=== PATIENT | male | born 1970 | race Caucasian/White ===

== ENCOUNTER 2018-01-10 08:11 | Inpatient (IN) | payer OTHER ==
[2018-01-10 08:44] VITALS: BMI 25.2
--- NOTE | 2018-01-10 09:33 | HP ---
CIWA Score - CIWA Score Nausea/Vomitin-Mild Nausea/No Vomiting Muscle Tremors: 4-Moderate,w/Arms Extend Anxiety: 4-Mod. Anxious/Guarded Agitation: 1-Slight > Activity Paroxysmal Sweats: 1-Minimal Palms Moist Orientation: 1-Uncertain about Date Tacttile Disturbances: 1-Very Mild Itch/Numbness Auditory Disturbances: 1-Very Mild Visual Disturbances: 1-Very Mild Sensitivity Headache: 1-Very Mild CIWA-Ar Total Score: 16 Admission ROS BHS - HPI Chief Complaint: I want to stop drinking, I need help, I get too shaky I can't stop on my own Allergies/Adverse Reactions: Allergies Allergy/AdvReac Type Severity Reaction Status Date / Time No Known Drug Allergies Allergy Verified 01/10/18 08:57 lactose [Lactose] AdvReac Unknown LACTOSE Verified 01/10/18 08:59 INTOLERANCE History of Present Illness: 47 yo gentleman here for detox from alcohol - also using marijuana, denies street methadone but noted urine tox+ methadone - also denies cocaine use despite urinte tox + cocaine. No seizures, does have black outs. Last time in detox was here in 2014. States longest time sober was about a year. Exam Limitations: Clinical Condition - Ebola screening Have you traveled outside of the country in the last 21 days: No (N) Have you had contact with anyone from an Ebola affected area: No Have you been sick,other than usual withdrawal symptoms: No Do you have a fever: No - Review of Systems Constitutional: Loss of Appetite, Malaise, Changes in sleep, Weakness EENT: reports: No Symptoms Reported Respiratory: reports: No Symptoms reported Cardiac: reports: No Symptoms Reported GI: reports: Nausea, Poor Appetite : reports: Frequency Musculoskeletal: reports: No Symptoms Reported Integumentary: reports: Dryness Neuro: reports: Headache, Tremors, Weakness Endocrine: reports: No Symptoms Reported Hematology: reports: No Symptoms Reported Psychiatric: reports: Judgement Intact, Mood/Affect Appropiate, Anxious Other Systems: Reviewed and Negative Patient History - Patient Medical History Hx Anemia: No Hx Asthma: No Hx Chronic Obstructive Pulmonary Disease (COPD): No Hx Cancer: No Hx Cardiac Disorders: No Hx Congestive Heart Failure: No Hx Hypertension: Yes (states high only when drinking - no meds) Hx Hypercholesterolemia: No Hx Pacemaker: No HX Cerebrovascular Accident: No Hx Seizures: No Hx Dementia: No Hx Diabetes: No Hx Gastrointestinal Disorders: Yes (acid reflux) Hx Liver Disease: No Hx Genitourinary Disorders: No Hx Sexually Transmitted Disorders: No Hx Renal Disease (ESRD): No Hx Thyroid Disease: No Hx Human Immunodeficiency Virus (HIV): No (negative) Hx Hepatitis C: No Hx Depression: Yes Hx Suicide Attempt: Yes (CURRENTLY DENIES SI/HI) Hx Bipolar Disorder: No Hx Schizophrenia: No - Patient Surgical History Past Surgical History: Yes Hx Neurologic Surgery: No Hx Cataract Extraction: No Hx Cardiac Surgery: No Hx Lung Surgery: No Hx Breast Surgery: No Hx Breast Biopsy: No Hx Abdominal Surgery: No Hx Appendectomy: No Hx Cholecystectomy: No Hx Genitourinary Surgery: No Hx Section: No Hx Orthopedic Surgery: No Other Surgical History: fracture floor of orbit right [facility] , numbness of right infr Anesthesia Reaction: No - PPD History Previous Implant?: Yes Documented Results: Negative w/proof Implanted On Prior [facility] Admission?: Yes Date: 11/16/14 Results: NEGATIVE PPD to be Administered?: Yes - Reproductive History Patient is a Female of Child Bearing Age (11 -55 yrs old): No (male) - Smoking Cessation Smoking history: Current every day smoker Have you smoked in the past 12 months: Yes Aproximately how many cigarettes per day: 20 Cigars Per Day: 0 Hx Chewing Tobacco Use: No Initiated information on smoking cessation: Yes 'Breaking Loose' booklet given: 01/10/18 (give on floor) - Substance & Tx. History Hx Alcohol Use: Yes Hx Substance Use: Yes Substance Use Type: Alcohol, Cocaine, Heroin, Marijuana Hx Substance Use Treatment: Yes (detox, rehab) - Substances Abused Alcohol Route: Oral Frequency: Daily Amount used: 2 LITERS OF VODKA AND 3-4 (SIX PACKS) OF BEER DAILY Age of first use: 12 Date of Last Use: 01/09/18 Marijuana/Hashish Route: Smoking Frequency: Daily Amount used: $30 Age of first use: 8 Date of Last Use: 01/09/18 cocaine Route: Inhalation Frequency: 1-3 times last 30 days Amount used: $50 Age of first use: 16 Date of Last Use: 01/07/18 heroin Route: Inhalation Frequency: 1-3 times last 30 days Amount used: 4 bags Age of first use: 24 Date of Last Use: 01/08/18 Family Disease History - Family Disease History Family Disease History: Other: Father (alcoholic , cirrhosis), Mother ( alcoholic ), Brother (living,healthy), Sister (living, healthy), Son ( two - living - healthy) Admission Physical Exam [facility] - Vital Signs Vital Signs: Vital Signs - 24 hr 01/10/18 08:41 Temperature 96.8 F L Pulse Rate 78 Respiratory 17 Rate Blood Pressure 159/102 - Physical General Appearance: Yes: Nourished, Appropriately Dressed, Moderate Distress, Tremorous HEENTM: Yes: EOMI, Hearing grossly Normal, Normocephalic, Normal Voice, Other ( left eye wanders outward; tongue coated) Respiratory: Yes: Normal Breath Sounds, No Respiratory Distress Neck: Yes: Supple, Trachea in good position Breast: Yes: Breast Exam Deferred Cardiology: Yes: Regular Rhythm, Regular Rate Abdominal: Yes: Soft Genitourinary: Yes: Frequency Back: Yes: Normal Inspection Musculoskeletal: Yes: full range of Motion, Gait Steady Extremities: Yes: Normal Inspection, Non-Tender Neurological: Yes: Alert, Normal Mood/Affect, Normal Response Integumentary: Yes: Normal Color, Warm Lymphatic: Yes: Within Normal Limits - Diagnostic (1) Alcohol dependence with uncomplicated withdrawal Current Visit: Yes Status: Acute (2) Cannabis dependence Current Visit: Yes Status: Chronic (3) Gastroesophageal reflux disease Current Visit: Yes Status: Chronic Qualifiers: Esophagitis presence: without esophagitis Qualified Code(s): K21.9 - Gastro -esophageal reflux disease without esophagitis (4) Nicotine dependence Current Visit: Yes Status: Chronic Qualifiers: Nicotine product type: cigarettes Substance use status: uncomplicated Qualified Code(s): F17.210 - Nicotine dependence, cigarettes, uncomplicated Cleared for Admission [facility] - Detox or Rehab [facility] Level of Care: Medically Managed Detox Regimen/Protocol: Librium [facility] Breath Alcohol Content Breath Alcohol Content: 0.060 Urine Drug Screen - Results Drug Screen Negative: No Urine Drug Screen Results: THC-Marijuana, LINDSEY-Cocaine, MTD-Methadone
[2018-01-10] MEDS ORDERED: MENTHOL/PHENOL 1 EACH UD MM PRN (09:50)
[2018-01-10] MEDS ORDERED: chlordiazePOXIDE HCL 25 MG CAPSULE PO PRN (09:50)
[2018-01-10] MEDS ORDERED: IBUPROFEN 400 MG TABLET (FP) PO PRN (09:50)
[2018-01-10] MEDS ORDERED: LOPERAMIDE HCL 2 MG CAPSULE PO PRN (09:50)
[2018-01-10] MEDS ORDERED: P-EPHED 60MG/TRIPROLIDI 2.5MG TABLET PO PRN (09:50)
[2018-01-10] MEDS ORDERED: MAGNESIUM CITRATE 300 ML BOTTLE PO PRN (09:50)
[2018-01-10] MEDS ORDERED: MAG HYDROX/AL HYDROX/SIMETH 30 ML UNIT-DOSE CUP PO PRN (09:50)
[2018-01-10] MEDS ORDERED: hydrOXYzine PAMOATE 50 MG CAPSULE (FP) PO PRN (09:50)
[2018-01-10] MEDS ORDERED: ACETAMINOPHEN 325 MG TABLET (FP) PO PRN (09:50)
[2018-01-10] MEDS ORDERED: MAGNESIUM HYDROX 2400MG/30ML ORAL SUSPENSION 30 ML CUP PO PRN (09:50)
[2018-01-10] MEDS ORDERED: guaiFENesin/D-METHORPHAN HB 10 ML UNIT-DOSE CUPS PO PRN (09:50)
[2018-01-10] MEDS ORDERED: chlordiazePOXIDE HCL 25 MG CAPSULE PO ONE (10:45)
[2018-01-10] MEDS: NICOTINE 21 MG/24 HOURS TOPICAL PATCH TD SCH (10:48)
[2018-01-10] MEDS: PRENATAL VITAMINS W/ FOLIC ACID TABLET (FP) PO SCH (10:49)
--- NOTE | 2018-01-10 14:47 | EKG ---
Test Reason : Blood Pressure : / mmHG Vent. Rate : 076 BPM Atrial Rate : 076 BPM P-R Int : 152 ms QRS Dur : 088 ms QT Int : 382 ms P-R-T Axes : 053 024 037 degrees QTc Int : 429 ms NORMAL SINUS RHYTHM NORMAL ECG NO PREVIOUS ECGS AVAILABLE Confirmed by MD Keith, Billy ([id number]) on 01/10/2018 2:47:26 PM Referred By: Confirmed By:Billy Parker MD
[2018-01-10] MEDS: chlordiazePOXIDE HCL 25 MG CAPSULE PO SCH ×2 (17:33→23:00)
[2018-01-10 17:39] LABS: URINE APPEARANCE CLEAR; URINE BILIRUBIN NEGATIVE (<2.0 mg/dL); URINE BLOOD NEGATIVE (NEGATIVE); URINE COLOR STRAW; URINE GLUCOSE (UA) NEGATIVE (NEGATIVE); URINE KETONE NEGATIVE (NEGATIVE); URINE LEUK ESTERASE NEGATIVE (NEGATIVE); URINE NITRITE NEGATIVE (NEGATIVE); URINE PROTEIN NEGATIVE (NEGATIVE); URINE UROBILINOGEN NEGATIVE mg/dL (0.2-1.0)
[2018-01-10] MEDS: THIAMINE HCL 100 MG TABLET (FP) PO SCH (23:01)
[2018-01-10] MEDS: MELATONIN 5 MG TABLETS PO PRN (23:01)
[2018-01-11] MEDS: chlordiazePOXIDE HCL 25 MG CAPSULE PO SCH ×4 (05:10→22:18)
[2018-01-11 10:08] LABS: HEMATOCRIT 38.9 % (35.4-49); HEMOGLOBIN 13.3 GM/dL (11.7-16.9); MCH 32.4 pg (25.7-33.7); MCHC 34.2 g/dl (32.0-35.9); MEAN CELL VOLUME 94.7 fl (80-96); MEAN PLT VOLUME 6.2 fl (7.5-11.1); PLATELET COUNT 313 K/MM3 (134-434); RDW 14.1 % (11.9-15.9)
[2018-01-11 10:22] LABS: ALBUMIN 3.8 g/dl (3.4-5.0); ANION GAP 9 (8-16); BLOOD UREA NITROGEN 13 mg/dL (7-18); CALCIUM 8.6 mg/dL (8.5-10.1); CHLORIDE 103 mmol/L (98-107); CO2 29 mmol/L (21-32); CREATININE 0.9 mg/dL (0.7-1.3); GLUCOSE,RANDOM 92 mg/dL (74-106); SGOT/AST 35 U/L (15-37); SGPT/ALT 39 U/L (12-78); SODIUM 141 mmol/L (136-145)
[2018-01-11 10:24] LABS: ALK PHOS 101 U/L (45-117); BILIRUBIN,TOTAL 0.5 mg/dL (0.2-1.0); TOT PROT 7.7 g/dl (6.4-8.2)
[2018-01-11] MEDS: NICOTINE 21 MG/24 HOURS TOPICAL PATCH TD SCH (10:42)
[2018-01-11] MEDS: PRENATAL VITAMINS W/ FOLIC ACID TABLET (FP) PO SCH (10:42)
--- NOTE | 2018-01-11 12:42 | PN ---
S CIWA - CIWA Score Nausea/Vomitin-Mild Nausea/No Vomiting Muscle Tremors: 4-Moderate,w/Arms Extend Anxiety: 3 Agitation: 3 Paroxysmal Sweats: 1-Minimal Palms Moist Orientation: 0-Oriented Tacttile Disturbances: 1-Very Mild Itch/Numbness Auditory Disturbances: 0-None Visual Disturbances: 0-None Headache: 0-None Present CIWA-Ar Total Score: 13 BHS Progress Note (SOAP) Subjective: sweat tremor restlessness trouble sleep at night Objective: 01/11/18 12:41 Vital Signs Temperature 97.5 F L 01/11/18 10:00 Pulse Rate 71 01/11/18 10:00 Respiratory Rate 18 01/11/18 10:00 Blood Pressure 123/73 01/11/18 10:00 O2 Sat by Pulse Oximetry (%) Laboratory Last Values WBC 8.0 K/mm3 (4.0-10.0) 01/11/18 05:55 RBC 4.10 M/mm3 (4.00-5.60) 01/11/18 05:55 Hgb 13.3 GM/dL (11.7-16.9) 01/11/18 05:55 Hct 38.9 % (35.4-49) 01/11/18 05:55 MCV 94.7 fl (80-96) 01/11/18 05:55 MCH 32.4 pg (25.7-33.7) 01/11/18 05:55 MCHC 34.2 g/dl (32.0-35.9) 01/11/18 05:55 RDW 14.1 % (11.9-15.9) 01/11/18 05:55 Plt Count 313 K/MM3 (134-434) D 01/11/18 05:55 MPV 6.2 fl (7.5-11.1) L D 01/11/18 05:55 Sodium 141 mmol/L (136-145) 01/11/18 05:55 Potassium 4.0 mmol/L (3.5-5.1) 01/11/18 05:55 Chloride 103 mmol/L (98-107) 01/11/18 05:55 Carbon Dioxide 29 mmol/L (21-32) 01/11/18 05:55 Anion Gap 9 (8-16) 01/11/18 05:55 BUN 13 mg/dL (7-18) D 01/11/18 05:55 Creatinine 0.9 mg/dL (0.7-1.3) 01/11/18 05:55 Creat Clearance w eGFR > 60 (>60) 01/11/18 05:55 Random Glucose 92 mg/dL (74-106) 01/11/18 05:55 Calcium 8.6 mg/dL (8.5-10.1) 01/11/18 05:55 Total Bilirubin 0.5 mg/dL (0.2-1.0) 01/11/18 05:55 AST 35 U/L (15-37) D 01/11/18 05:55 ALT 39 U/L (12-78) D 01/11/18 05:55 Alkaline Phosphatase 101 U/L (45-117) D 01/11/18 05:55 Total Protein 7.7 g/dl (6.4-8.2) 01/11/18 05:55 Albumin 3.8 g/dl (3.4-5.0) 01/11/18 05:55 Urine Color Straw 01/10/18 Unknown Urine Appearance Clear 01/10/18 Unknown Urine pH 8.0 (5.0-8.0) D 01/10/18 Unknown Ur Specific [place] 1.013 (1.001-1.035) 01/10/18 Unknown Urine Protein Negative (NEGATIVE) 01/10/18 Unknown Urine Glucose (UA) Negative (NEGATIVE) 01/10/18 Unknown Urine Ketones Negative (NEGATIVE) 01/10/18 Unknown Urine Blood Negative (NEGATIVE) 01/10/18 Unknown Urine Nitrite Negative (NEGATIVE) 01/10/18 Unknown Urine Bilirubin Negative (<2.0 mg/dL) 01/10/18 Unknown Urine Urobilinogen Negative mg/dL (0.2-1.0) 01/10/18 Unknown Ur Leukocyte Esterase Negative (NEGATIVE) 01/10/18 Unknown RPR Titer Nonreactive (NONREACTIVE) 01/11/18 05:55 HIV 1&2 Antibody Screen Negative 01/11/18 05:55 HIV P24 Antigen Negative 01/11/18 05:55 lab noted Assessment: 01/11/18 12:42 withdrawal sx Plan: continue detox
[2018-01-11] MEDS: THIAMINE HCL 100 MG TABLET (FP) PO SCH (22:17)
[2018-01-11] MEDS: MELATONIN 5 MG TABLETS PO PRN (22:18)
[2018-01-12] MEDS: chlordiazePOXIDE HCL 25 MG CAPSULE PO SCH ×2 (05:55→10:15)
[2018-01-12] MEDS: PRENATAL VITAMINS W/ FOLIC ACID TABLET (FP) PO SCH (10:15)
[2018-01-12] MEDS: NICOTINE 21 MG/24 HOURS TOPICAL PATCH TD SCH (10:16)
--- NOTE | 2018-01-12 10:18 | PN ---
S CIWA - CIWA Score Nausea/Vomitin-Mild Nausea/No Vomiting Muscle Tremors: 4-Moderate,w/Arms Extend Anxiety: 2 Agitation: 3 Paroxysmal Sweats: 1-Minimal Palms Moist Orientation: 0-Oriented Tacttile Disturbances: 1-Very Mild Itch/Numbness Auditory Disturbances: 0-None Visual Disturbances: 0-None Headache: 0-None Present CIWA-Ar Total Score: 12 BHS Progress Note (SOAP) Subjective: sweat tremor anxiety restlessness trouble sleep at night Objective: 01/12/18 10:17 Vital Signs Temperature 97.5 F L 01/12/18 07:43 Pulse Rate 64 01/12/18 07:43 Respiratory Rate 18 01/12/18 07:43 Blood Pressure 126/78 01/12/18 07:43 O2 Sat by Pulse Oximetry (%) Laboratory Last Values WBC 8.0 K/mm3 (4.0-10.0) 01/11/18 05:55 RBC 4.10 M/mm3 (4.00-5.60) 01/11/18 05:55 Hgb 13.3 GM/dL (11.7-16.9) 01/11/18 05:55 Hct 38.9 % (35.4-49) 01/11/18 05:55 MCV 94.7 fl (80-96) 01/11/18 05:55 MCH 32.4 pg (25.7-33.7) 01/11/18 05:55 MCHC 34.2 g/dl (32.0-35.9) 01/11/18 05:55 RDW 14.1 % (11.9-15.9) 01/11/18 05:55 Plt Count 313 K/MM3 (134-434) D 01/11/18 05:55 MPV 6.2 fl (7.5-11.1) L D 01/11/18 05:55 Sodium 141 mmol/L (136-145) 01/11/18 05:55 Potassium 4.0 mmol/L (3.5-5.1) 01/11/18 05:55 Chloride 103 mmol/L (98-107) 01/11/18 05:55 Carbon Dioxide 29 mmol/L (21-32) 01/11/18 05:55 Anion Gap 9 (8-16) 01/11/18 05:55 BUN 13 mg/dL (7-18) D 01/11/18 05:55 Creatinine 0.9 mg/dL (0.7-1.3) 01/11/18 05:55 Creat Clearance w eGFR > 60 (>60) 01/11/18 05:55 Random Glucose 92 mg/dL (74-106) 01/11/18 05:55 Calcium 8.6 mg/dL (8.5-10.1) 01/11/18 05:55 Total Bilirubin 0.5 mg/dL (0.2-1.0) 01/11/18 05:55 AST 35 U/L (15-37) D 01/11/18 05:55 ALT 39 U/L (12-78) D 01/11/18 05:55 Alkaline Phosphatase 101 U/L (45-117) D 01/11/18 05:55 Total Protein 7.7 g/dl (6.4-8.2) 01/11/18 05:55 Albumin 3.8 g/dl (3.4-5.0) 01/11/18 05:55 Urine Color Straw 01/10/18 Unknown Urine Appearance Clear 01/10/18 Unknown Urine pH 8.0 (5.0-8.0) D 01/10/18 Unknown Ur Specific [place] 1.013 (1.001-1.035) 01/10/18 Unknown Urine Protein Negative (NEGATIVE) 01/10/18 Unknown Urine Glucose (UA) Negative (NEGATIVE) 01/10/18 Unknown Urine Ketones Negative (NEGATIVE) 01/10/18 Unknown Urine Blood Negative (NEGATIVE) 01/10/18 Unknown Urine Nitrite Negative (NEGATIVE) 01/10/18 Unknown Urine Bilirubin Negative (<2.0 mg/dL) 01/10/18 Unknown Urine Urobilinogen Negative mg/dL (0.2-1.0) 01/10/18 Unknown Ur Leukocyte Esterase Negative (NEGATIVE) 01/10/18 Unknown RPR Titer Nonreactive (NONREACTIVE) 01/11/18 05:55 HIV 1&2 Antibody Screen Negative 01/11/18 05:55 HIV P24 Antigen Negative 01/11/18 05:55 lab noted Assessment: 01/12/18 10:18 withdrawal sx Plan: continue detox
--- NOTE | 2018-01-12 11:22 | CONSULT ---
[facility] Psychiatric Consult - Data Date of interview: 01/12/18 Admission source: [facility] Identifying data: This is 47 years old male, single father of two, unemployed, with no psychiatric hospitalization history, gentleman here for detox from alcohol - also marijuana, Heroin a s well, Cocaine, seeking for detox, reports withdrawal symptoms Substance Abuse History: - Smoking Cessation. Smoking history: Current every day smoker. Have you smoked in the past 12 months: Yes. Aproximately how many cigarettes per day: 20. Cigars Per Day: 0. Hx Chewing Tobacco Use: No. Initiated information on smoking cessation: Yes. 'Breaking Loose' booklet given : 01/10/18 (give on floor). - Substance & Tx. History. Hx Alcohol Use: Yes. Hx Substance Use: Yes. Substance Use Type: Alcohol, Cocaine, Heroin, Marijuana. Hx Substance Use Treatment: Yes (detox, rehab). - Substances Abused. Alcohol. Route: Oral. Frequency: Daily. Amount used: 2 LITERS OF VODKA AND 3-4 (SIX PACKS) OF BEER DAILY. Age of first use: 12. Date of Last Use: 01/09/18. Marijuana/Hashish. Route: Smoking. Frequency: Daily. Amount used: $30. Age of first use: 8. Date of Last Use: 01/09/18. cocaine. Route: Inhalation. Frequency: 1-3 times last 30 days. Amount used: $ 50. Age of first use: 16. Date of Last Use: 01/07/18. heroin. Route: Inhalation. Frequency: 1-3 times last 30 days. Amount used: 4 bags. Age of first use: 24. Date of Last Use: 01/08/18 Medical History: GERD Psychiatric History: DENIES PAST PSYCHIATRIC HISTORY Physical/Sexual Abuse/Trauma History: Denies Additional Comment: Observation. Detox Unit Care Protocol Mental Status Exam - Mental Status Exam Alert and Oriented to: Person Cognitive Function: Fair Patient Appearance: Unkempt Mood: Anxious Affect: Normal Range Patient Behavior: Cooperative Speech Pattern: Delayed Voice Loudness: Mildly Soft/Quiet Thought Process: Circumstantial Thought Disorder: Being Controlled Hallucinations: Denies Suicidal Ideation: Denies Insight/Judgement: Fair Sleep: Difficulty falling asleep Appetite: Weight loss Muscle strength/Tone: Mild Hypotonicity Gait/Station: Shuffling Additional Comments: Observation. Detox Unit Care Protocol Psychiatric Findings - Problem List ([place] 1, 2,3) (1) Alcohol dependence with uncomplicated withdrawal Current Visit: Yes Status: Acute (2) Cannabis dependence Current Visit: Yes Status: Chronic (3) Nicotine dependence Current Visit: Yes Status: Chronic Qualifiers: Nicotine product type: cigarettes Substance use status: uncomplicated Qualified Code(s): F17.210 - Nicotine dependence, cigarettes, uncomplicated (4) Cannabis dependence, uncomplicated Current Visit: No Status: Acute (5) Uncomplicated sedative, hypnotic or anxiolytic withdrawal Current Visit: No Status: Acute (6) Alcohol dependence Current Visit: No Status: Chronic Qualifiers: Substance use status: in withdrawal Complication of substance-induced condition: uncomplicated Qualified Code(s): F10.230 - Alcohol dependence with withdrawal, uncomplicated (7) Anxiety and depression Current Visit: No Status: Chronic (8) Benzodiazepine dependence Current Visit: No Status: Chronic - Initial Treatment Plan Initial Treatment Plan: Observation. Detox Unit Care Protocol
[2018-01-12] MEDS: GABAPENTIN 300 MG CAPSULE (FP) PO SCH ×2 (15:53→22:51)
[2018-01-12] MEDS: chlordiazePOXIDE 5 MG CAPSULE PO SCH ×2 (18:13→22:51)
[2018-01-12] MEDS: THIAMINE HCL 100 MG TABLET (FP) PO SCH (22:51)
[2018-01-12] MEDS: MELATONIN 5 MG TABLETS PO PRN (22:51)
[2018-01-13] MEDS: GABAPENTIN 300 MG CAPSULE (FP) PO SCH (05:33)
[2018-01-13] MEDS: chlordiazePOXIDE 5 MG CAPSULE PO SCH (05:33)
--- NOTE | 2018-01-13 09:42 | DS ---
[facility] Detox Discharge Summary Admission Date: 01/10/18 Discharge Date: 01/13/18 - History Present History: Alcohol Dependence Additional Comments: 48 years old male admitted 01/10/18 for alcohol withdrawal sx reported feeling better denies alcohol withdrawal sx alert oriented x 3 no acute distress [facility] patient determines to maintain sober through recovering process verbalized relapse prevention - Physical Exam Results Vital Signs: Vital Signs Temperature 96.8 F L 01/13/18 06:00 Pulse Rate 70 01/13/18 06:00 Respiratory Rate 18 01/13/18 06:00 Blood Pressure 128/79 01/13/18 06:00 O2 Sat by Pulse Oximetry (%) Pertinent Admission Physical Exam Findings: alcohol withdrawal sx Vital Signs Temperature 96.8 F L 01/13/18 06:00 Pulse Rate 70 01/13/18 06:00 Respiratory Rate 18 01/13/18 06:00 Blood Pressure 128/79 01/13/18 06:00 O2 Sat by Pulse Oximetry (%) Laboratory Last Values WBC 8.0 K/mm3 (4.0-10.0) 01/11/18 05:55 RBC 4.10 M/mm3 (4.00-5.60) 01/11/18 05:55 Hgb 13.3 GM/dL (11.7-16.9) 01/11/18 05:55 Hct 38.9 % (35.4-49) 01/11/18 05:55 MCV 94.7 fl (80-96) 01/11/18 05:55 MCH 32.4 pg (25.7-33.7) 01/11/18 05:55 MCHC 34.2 g/dl (32.0-35.9) 01/11/18 05:55 RDW 14.1 % (11.9-15.9) 01/11/18 05:55 Plt Count 313 K/MM3 (134-434) D 01/11/18 05:55 MPV 6.2 fl (7.5-11.1) L D 01/11/18 05:55 Sodium 141 mmol/L (136-145) 01/11/18 05:55 Potassium 4.0 mmol/L (3.5-5.1) 01/11/18 05:55 Chloride 103 mmol/L (98-107) 01/11/18 05:55 Carbon Dioxide 29 mmol/L (21-32) 01/11/18 05:55 Anion Gap 9 (8-16) 01/11/18 05:55 BUN 13 mg/dL (7-18) D 01/11/18 05:55 Creatinine 0.9 mg/dL (0.7-1.3) 01/11/18 05:55 Creat Clearance w eGFR > 60 (>60) 01/11/18 05:55 Random Glucose 92 mg/dL (74-106) 01/11/18 05:55 Calcium 8.6 mg/dL (8.5-10.1) 01/11/18 05:55 Total Bilirubin 0.5 mg/dL (0.2-1.0) 01/11/18 05:55 AST 35 U/L (15-37) D 01/11/18 05:55 ALT 39 U/L (12-78) D 01/11/18 05:55 Alkaline Phosphatase 101 U/L (45-117) D 01/11/18 05:55 Total Protein 7.7 g/dl (6.4-8.2) 01/11/18 05:55 Albumin 3.8 g/dl (3.4-5.0) 01/11/18 05:55 Urine Color Straw 01/10/18 Unknown Urine Appearance Clear 01/10/18 Unknown Urine pH 8.0 (5.0-8.0) D 01/10/18 Unknown Ur Specific [place] 1.013 (1.001-1.035) 01/10/18 Unknown Urine Protein Negative (NEGATIVE) 01/10/18 Unknown Urine Glucose (UA) Negative (NEGATIVE) 01/10/18 Unknown Urine Ketones Negative (NEGATIVE) 01/10/18 Unknown Urine Blood Negative (NEGATIVE) 01/10/18 Unknown Urine Nitrite Negative (NEGATIVE) 01/10/18 Unknown Urine Bilirubin Negative (<2.0 mg/dL) 01/10/18 Unknown Urine Urobilinogen Negative mg/dL (0.2-1.0) 01/10/18 Unknown Ur Leukocyte Esterase Negative (NEGATIVE) 01/10/18 Unknown RPR Titer Nonreactive (NONREACTIVE) 01/11/18 05:55 HIV 1&2 Antibody Screen Negative 01/11/18 05:55 HIV P24 Antigen Negative 01/11/18 05:55 lab noted - Treatment Hospital Course: Detox Protocol Followed, Detoxed Safely, Responded well, Discharged Condition Good, Rehab Referral Accepted Patient has Accepted a Rehab Referral to: [facility] - Medication Discharge Medications: Ambulatory Orders NK [No Known Home Medication] 01/10/18 - Diagnosis (1) Nicotine dependence Current Visit: Yes Status: Acute Qualifiers: Nicotine product type: cigarettes Substance use status: in withdrawal Qualified Code(s): F17.213 - Nicotine dependence, cigarettes, with withdrawal (2) Gastroesophageal reflux disease Current Visit: Yes Status: Chronic Qualifiers: Esophagitis presence: without esophagitis Qualified Code(s): K21.9 - Gastro -esophageal reflux disease without esophagitis (3) Bipolar II disorder Current Visit: Yes Status: Suspected (4) Alcohol dependence with uncomplicated withdrawal Current Visit: Yes Status: Acute - AMA Did Patient Leave Against Medical Advice: No
[2018-01-13 09:51] VITALS: BP 128/100; PULSE 79; TEMP 97
[2018-01-13] MEDS ORDERED: chlordiazePOXIDE HCL 10 MG CAPSULE PO SCH (17:00)
== END 2018-01-13 10:32 | disposition home or self-care (01) | DRG 775 ==
LOC: YASAS 08:11 → Y6N 10:03
PROVIDERS: ADMIT Surgery; ATTEND Surgery
PROC: HZ2ZZZZ Detoxification Services for Substance Abuse Treatment (ICD-10-PCS; principal; 2018-01-10)
DX: F10.230 Alcohol dependence with withdrawal, uncomplicated (principal); F12.20 Cannabis dependence, uncomplicated; F17.213 Nicotine dependence, cigarettes, with withdrawal; F31.81 Bipolar II disorder; F41.8 Other specified anxiety disorders; K21.9 Gastro-esophageal reflux disease without esophagitis
CPT/HCPCS: 36415; 80053; 81003; 85027; 86593; 87389; 93005; 93010

== ENCOUNTER 2019-04-27 09:28 | Inpatient (IN) | payer OTHER ==
[2019-04-27 09:55] VITALS: BMI 27.3
--- NOTE | 2019-04-27 10:53 | HP ---
CIWA Score Nausea/Vomitin Muscle Tremors: 2 Anxiety: 3 Agitation: 3 Paroxysmal Sweats: 1-Minimal Palms Moist Orientation: 0-Oriented Tacttile Disturbances: 1-Very Mild Itch/Numbness Auditory Disturbances: 0-None Visual Disturbances: 0-None Headache: 2-Mild CIWA-Ar Total Score: 15 - Admission Criteria [facility]ASAS Guidelines: Admission for Medically Managed Detox: Requires at least one of the followin. CIWA greater than 12 2. Seizures within the past 24 hours 3. Delirium tremens within the past 24 hours 4. Hallucinations within the past 24 hours 5. Acute intervention needed for co occurring medical disorder 6. Acute intervention needed for co occurring psychiatric disorder 7. Severe withdrawal that cannot be handled at a lower level of care (continued vomiting, continued diarrhea, abnormal vital signs) requiring intravenous medication and/or fluids 8. Admission ROS [facility] - [facility] Chief Complaint: tara here for detox from alcohol and to rehab after Allergies/Adverse Reactions: Allergies Allergy/AdvReac Type Severity Reaction Status Date / Time No Known Drug Allergies Allergy Verified 04/27/19 09:42 lactose [Lactose] AdvReac Unknown LACTOSE Verified 04/27/19 09:42 INTOLERANCE History of Present Illness: this 49 years old male with alcohol and marijuana dependence,seeking help to stop,withdrawal symptom, denied seizure,syncope alcohol related multiple admissions in detox but keep relapsing nicotine dependence longest sobriety 2 months plan for rehab after detox. last detox [facility] 01/10/18 to 01/13/18 history of gerd history of pancreatitis in 2017 history of fracture floor of orbit right in 2012 - Ebola screening Have you traveled outside of the country in the last 21 days: No (N) Have you had contact with anyone from an Ebola affected area: No Do you have a fever: No - Review of Systems Constitutional: Loss of Appetite, Malaise, Night Sweats, Changes in sleep, Unintentional Wgt. Loss, Other EENT: reports: Tearing, Nose Congestion Respiratory: reports: No Symptoms reported Cardiac: reports: No Symptoms Reported GI: reports: Nausea, Poor Appetite, Vomiting, Abdominal cramping : reports: No Symptoms Reported Musculoskeletal: reports: Back Pain, Muscle Pain Integumentary: reports: Dryness Neuro: reports: Headache, Tremors Endocrine: reports: No Symptoms Reported Hematology: reports: No Symptoms Reported Psychiatric: reports: No Sypmtoms Reported, Judgement Intact, Mood/Affect Appropiate, Orientated x3 Other Systems: Reviewed and Negative Patient History - Patient Medical History Hx Anemia: No Hx Asthma: No Hx Chronic Obstructive Pulmonary Disease (COPD): No Hx Cancer: No Hx Cardiac Disorders: No Hx Congestive Heart Failure: No Hx Hypertension: Yes (states high only when drinking - no meds) Hx Hypercholesterolemia: No Hx Pacemaker: No HX Cerebrovascular Accident: No Hx Seizures: No Hx Dementia: No Hx Diabetes: No Hx Gastrointestinal Disorders: Yes (acid reflux,pancreatitis in 2017) Hx Liver Disease: No Hx Genitourinary Disorders: No Hx Sexually Transmitted Disorders: No Hx Renal Disease (ESRD): No Hx Thyroid Disease: No Hx Human Immunodeficiency Virus (HIV): No (negative) Hx Hepatitis C: No Hx Depression: Yes (no med) Hx Suicide Attempt: Yes (CURRENTLY DENIES SI/HI) Hx Bipolar Disorder: No Hx Schizophrenia: No Other Medical History: no suicdial,no homicidal - Patient Surgical History Past Surgical History: Yes Hx Neurologic Surgery: No Hx Cataract Extraction: No Hx Cardiac Surgery: No Hx Lung Surgery: No Hx Breast Surgery: No Hx Breast Biopsy: No Hx Abdominal Surgery: No Hx Appendectomy: No Hx Cholecystectomy: No Hx Genitourinary Surgery: No Hx Section: No Hx Orthopedic Surgery: No Other Surgical History: fracture floor of orbit right in 2011 [facility] Anesthesia Reaction: No - PPD History Previous Implant?: Yes Documented Results: Negative w/proof Implanted On Prior [facility] Admission?: Yes Date: 01/12/18 Results: NEGATIVE PPD to be Administered?: No - Smoking Cessation Smoking history: Current every day smoker Have you smoked in the past 12 months: Yes Aproximately how many cigarettes per day: 20 Cigars Per Day: 0 Hx Chewing Tobacco Use: No Initiated information on smoking cessation: Yes 'Breaking Loose' booklet given: 04/27/19 - Substance & Tx. History Hx Alcohol Use: Yes Hx Substance Use: No Substance Use Type: Alcohol, Marijuana Hx Substance Use Treatment: Yes ([facility] 01/10/18 to 01/13/18) - Substances abused Alcohol Substance route: Oral Frequency: Daily Amount used: 3 liter of vodka Age of first use: 12 Date of last use: 04/27/19 Marijuana/Hashish Substance route: Oral Frequency: Daily Amount used: 3 blunts/ 30 dollars Age of first use: 8 Date of last use: 04/26/19 Admission Physical Exam [facility] - Vital Signs Vital Signs: Vital Signs - 24 hr 04/27/19 09:41 Temperature 97.9 F Pulse Rate 72 Respiratory 18 Rate Blood Pressure 149/100 - Physical General Appearance: Yes: Moderate Distress, Tremorous, Irritable, Sweating, Anxious HEENTM: Yes: Normal ENT Inspection, Normocephalic, HANY, Pharynx Normal Respiratory: Yes: Lungs Clear, Normal Breath Sounds, No Respiratory Distress Neck: Yes: No masses,lesions,Nodules, Supple, Trachea in good position Breast: Yes: Breast Exam Deferred Cardiology: Yes: Within Normal Limits, Regular Rhythm, S1, S2 Abdominal: Yes: Within Normal Limits, Normal Bowel Sounds, Non Tender, Soft Genitourinary: Yes: Within Normal Limits Back: Yes: Within Normal Limits, Muscle Spasm Musculoskeletal: Yes: full range of Motion, Back pain, Muscle Pain Extremities: Yes: Tremors Neurological: Yes: 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 II-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 NML intact, Fully Oriented, Alert, Motor Strength 5/5 Integumentary: Yes: Dry Lymphatic: Yes: Within Normal Limits - Diagnostic (1) Alcohol dependence with uncomplicated withdrawal Current Visit: No Status: Acute (2) Cannabis dependence, uncomplicated Current Visit: No Status: Acute (3) Nicotine dependence Current Visit: No Status: Acute Qualifiers: Nicotine product type: cigarettes Substance use status: in withdrawal Qualified Code(s): F17.213 - Nicotine dependence, cigarettes, with withdrawal (4) Syncope Current Visit: No Status: Suspected (5) Right orbit fracture Current Visit: Yes Status: Acute (6) History of pancreatitis Current Visit: Yes Status: Acute Cleared for Admission [facility] - Detox or Rehab [facility] Level of Care: Medically Managed Detox Regimen/Protocol: Librium Breathalyzer - Breathalyzer Breathalyzer: 0 Urine Drug Screen - Test Device Lot number: [id number] Expiration date: 01/01/21 - Control Is test valid?: Yes - Results Drug screen NEGATIVE: No Urine drug screen results: THC-Marijuana, LINDSEY-Cocaine Inpatient Rehab Admission - Rehab Decision to Admit Inpatient rehab admission?: No
[2019-04-27] MEDS ORDERED: IBUPROFEN 400 MG TABLET (FP) PO PRN (11:06)
[2019-04-27] MEDS ORDERED: ACETAMINOPHEN 325 MG TABLET (FP) PO PRN ×2 (11:06)
[2019-04-27] MEDS ORDERED: chlordiazePOXIDE HCL 25 MG CAPSULE PO PRN (11:06)
[2019-04-27] MEDS ORDERED: MENTHOL/PHENOL 1 EACH UD MM PRN (11:06)
[2019-04-27] MEDS ORDERED: BISMUTH SUBSALICYLATE 262 MG/15 ML BTL PO PRN (11:06)
[2019-04-27] MEDS ORDERED: MAGNESIUM CITRATE 300 ML BOTTLE PO PRN (11:06)
[2019-04-27] MEDS ORDERED: MAGNESIUM HYDROX 2400MG/30ML ORAL SUSPENSION 30 ML CUP PO PRN (11:06)
[2019-04-27] MEDS ORDERED: MAG HYDROX/AL HYDROX/SIMETH 30 ML UNIT-DOSE CUP PO PRN (11:06)
[2019-04-27] MEDS: PANTOPRAZOLE 40 MG TABLET (FP) PO SCH (11:36)
[2019-04-27] MEDS: NICOTINE 21 MG/24 HOURS TOPICAL PATCH TD SCH (11:36)
[2019-04-27 16:04] LABS: BILIRUBIN,TOTAL 0.6 mg/dL (0.2-1); BLOOD UREA NITROGEN 21.3 mg/dL (7-18); CALCIUM 9.3 mg/dL (8.5-10.1); CREATININE 1.1 mg/dL (0.55-1.3); POTASSIUM 4.4 mmol/L (3.5-5.1); TOT PROT 7.8 g/dl (6.4-8.2)
[2019-04-27 16:08] LABS: HEMATOCRIT 43.1 % (35.4-49); HEMOGLOBIN 14.4 GM/dL (11.7-16.9); MCH 33.1 pg (25.7-33.7); MCHC 33.5 g/dl (32.0-35.9); MEAN CELL VOLUME 98.7 fl (80-96); MEAN PLT VOLUME 6.6 fl (7.5-11.1); PLATELET COUNT 329 K/MM3 (134-434); RBC 4.37 M/mm3 (4.00-5.60); RDW 13.9 % (11.9-15.9); WHITE BLOOD COUNT 7.6 K/mm3 (4.0-10.0)
[2019-04-27] MEDS: chlordiazePOXIDE HCL 25 MG CAPSULE PO SCH ×2 (17:26→22:25)
[2019-04-27] MEDS: THIAMINE HCL 100 MG TABLET (FP) PO SCH (21:33)
[2019-04-27] MEDS: MELATONIN 5 MG TABLETS PO PRN (21:33)
[2019-04-28] MEDS: chlordiazePOXIDE HCL 25 MG CAPSULE PO SCH ×4 (06:33→22:08)
[2019-04-28] MEDS: PRENATAL VITAMINS W/ FOLIC ACID TABLET (FP) PO SCH (10:18)
[2019-04-28] MEDS: NICOTINE 21 MG/24 HOURS TOPICAL PATCH TD SCH (10:18)
[2019-04-28] MEDS: PANTOPRAZOLE 40 MG TABLET (FP) PO SCH (10:18)
--- NOTE | 2019-04-28 11:51 | PN ---
[facility] CIWA - CIWA Score Nausea/Vomitin-Mild Nausea/No Vomiting Muscle Tremors: 2 Anxiety: 2 Agitation: 3 Paroxysmal Sweats: No Perspiration Orientation: 0-Oriented Tacttile Disturbances: 1-Very Mild Itch/Numbness Auditory Disturbances: 0-None Visual Disturbances: 0-None Headache: 1-Very Mild CIWA-Ar Total Score: 10 S Progress Note (SOAP) Subjective: alert,irritable,anxious,interrupted sleep,tremor Objective: 04/28/19 11:49 Vital Signs Temperature 97.3 F L 04/28/19 08:55 Pulse Rate 62 04/28/19 08:55 Respiratory Rate 18 04/28/19 08:55 Blood Pressure 124/80 04/28/19 08:55 O2 Sat by Pulse Oximetry (%) 04/28/19 11:49 Laboratory Last Values WBC 7.6 K/mm3 (4.0-10.0) 04/27/19 11:00 RBC 4.37 M/mm3 (4.00-5.60) 04/27/19 11:00 Hgb 14.4 GM/dL (11.7-16.9) 04/27/19 11:00 Hct 43.1 % (35.4-49) 04/27/19 11:00 MCV 98.7 fl (80-96) H 04/27/19 11:00 MCH 33.1 pg (25.7-33.7) 04/27/19 11:00 MCHC 33.5 g/dl (32.0-35.9) 04/27/19 11:00 RDW 13.9 % (11.9-15.9) 04/27/19 11:00 Plt Count 329 K/MM3 (134-434) 04/27/19 11:00 MPV 6.6 fl (7.5-11.1) L 04/27/19 11:00 Sodium 141 mmol/L (136-145) 04/27/19 11:00 Potassium 4.4 mmol/L (3.5-5.1) 04/27/19 11:00 Chloride 107 mmol/L (98-107) 04/27/19 11:00 Carbon Dioxide 25 mmol/L (21-32) 04/27/19 11:00 Anion Gap 8 MMOL/L (8-16) 04/27/19 11:00 BUN 21.3 mg/dL (7-18) H 04/27/19 11:00 Creatinine 1.1 mg/dL (0.55-1.3) 04/27/19 11:00 Est GFR (CKD-EPI)AfAm 90.24 04/27/19 11:00 Est GFR (CKD-EPI)NonAf 77.86 04/27/19 11:00 Random Glucose 97 mg/dL (74-106) 04/27/19 11:00 Calcium 9.3 mg/dL (8.5-10.1) 04/27/19 11:00 Total Bilirubin 0.6 mg/dL (0.2-1) 04/27/19 11:00 AST 48 U/L (15-37) H 04/27/19 11:00 ALT 60 U/L (13-61) 04/27/19 11:00 Alkaline Phosphatase 80 U/L (45-117) 04/27/19 11:00 Total Protein 7.8 g/dl (6.4-8.2) 04/27/19 11:00 Albumin 4.0 g/dl (3.4-5.0) 04/27/19 11:00 04/28/19 11:50 labs pending Assessment: 04/28/19 11:50 withdrawal symptom Plan: continue detox librium regimen,encourage oral fluid
[2019-04-28] MEDS: METHOCARBAMOL 500 MG TABLET PO PRN (17:13)
[2019-04-28] MEDS: hydrOXYzine PAMOATE 25 MG CAPSULE (FP) PO PRN (17:13)
[2019-04-28] MEDS: THIAMINE HCL 100 MG TABLET (FP) PO SCH (22:08)
[2019-04-28] MEDS: MELATONIN 5 MG TABLETS PO PRN (22:08)
[2019-04-29] MEDS: chlordiazePOXIDE HCL 25 MG CAPSULE PO SCH ×4 (06:25→22:02)
[2019-04-29 09:41] LABS: PH,URINE 5.5 (5.0-8.0); URINE APPEARANCE CLEAR; URINE BILIRUBIN NEGATIVE (NEGATIVE); URINE COLOR YELLOW; URINE GLUCOSE (UA) NEGATIVE (NEGATIVE); URINE KETONE NEGATIVE (NEGATIVE); URINE LEUK ESTERASE NEGATIVE (NEGATIVE); URINE NITRITE NEGATIVE (NEGATIVE); URINE PROTEIN NEGATIVE (NEGATIVE); URINE UROBILINOGEN 0.2 mg/dL (0.2-1.0)
[2019-04-29] MEDS: PRENATAL VITAMINS W/ FOLIC ACID TABLET (FP) PO SCH (10:07)
[2019-04-29] MEDS: PANTOPRAZOLE 40 MG TABLET (FP) PO SCH (10:07)
[2019-04-29] MEDS: hydrOXYzine PAMOATE 25 MG CAPSULE (FP) PO PRN (10:08)
[2019-04-29] MEDS: NICOTINE 21 MG/24 HOURS TOPICAL PATCH TD SCH (10:09)
[2019-04-29] MEDS: METHOCARBAMOL 500 MG TABLET PO PRN (11:39)
--- NOTE | 2019-04-29 13:24 | PN ---
[facility] CIWA - CIWA Score Nausea/Vomitin-Mild Nausea/No Vomiting Muscle Tremors: 1-None Visible, but [place] Anxiety: 2 Agitation: 2 Paroxysmal Sweats: No Perspiration Orientation: 0-Oriented Tacttile Disturbances: 1-Very Mild Itch/Numbness Auditory Disturbances: 0-None Visual Disturbances: 0-None Headache: 1-Very Mild CIWA-Ar Total Score: 8 BHS Progress Note (SOAP) Subjective: alert,irritable,anxious,interrupted sleep Objective: 04/29/19 13:23 Vital Signs Temperature 98.0 F 04/29/19 09:38 Pulse Rate 75 04/29/19 09:38 Respiratory Rate 18 04/29/19 09:38 Blood Pressure 140/90 04/29/19 09:38 O2 Sat by Pulse Oximetry (%) Assessment: 04/29/19 13:24 withdrawal symptom Plan: continue detox librium regimen
[2019-04-29] MEDS: MELATONIN 5 MG TABLETS PO PRN (22:02)
[2019-04-29] MEDS: THIAMINE HCL 100 MG TABLET (FP) PO SCH (22:02)
[2019-04-30] MEDS ORDERED: chlordiazePOXIDE HCL 10 MG CAPSULE PO PRN
[2019-04-30] MEDS: chlordiazePOXIDE HCL 10 MG CAPSULE PO SCH ×4 (06:34→22:17)
[2019-04-30] MEDS: NICOTINE 21 MG/24 HOURS TOPICAL PATCH TD SCH (10:07)
[2019-04-30] MEDS: PRENATAL VITAMINS W/ FOLIC ACID TABLET (FP) PO SCH (10:07)
[2019-04-30] MEDS: PANTOPRAZOLE 40 MG TABLET (FP) PO SCH (10:07)
[2019-04-30] MEDS: hydrOXYzine PAMOATE 25 MG CAPSULE (FP) PO PRN (10:11)
--- NOTE | 2019-04-30 15:27 | PN ---
[facility] CIWA - CIWA Score Nausea/Vomitin-No Nausea/No Vomiting Muscle Tremors: 2 Anxiety: 2 Agitation: 0-Normal Activity Paroxysmal Sweats: 3 Orientation: 0-Oriented Tacttile Disturbances: 1-Very Mild Itch/Numbness Auditory Disturbances: 0-None Visual Disturbances: 1-Very Mild Sensitivity Headache: 1-Very Mild CIWA-Ar Total Score: 10 S Progress Note (SOAP) Subjective: c/o of interrupted sleep, chills, sweats Objective: 04/30/19 15:26 Vital Signs Temperature 97.1 F L 04/30/19 12:42 Pulse Rate 76 04/30/19 12:42 Respiratory Rate 18 04/30/19 12:42 Blood Pressure 124/85 04/30/19 12:42 O2 Sat by Pulse Oximetry (%) Laboratory Last Values WBC 7.6 K/mm3 (4.0-10.0) 04/27/19 11:00 RBC 4.37 M/mm3 (4.00-5.60) 04/27/19 11:00 Hgb 14.4 GM/dL (11.7-16.9) 04/27/19 11:00 Hct 43.1 % (35.4-49) 04/27/19 11:00 MCV 98.7 fl (80-96) H 04/27/19 11:00 MCH 33.1 pg (25.7-33.7) 04/27/19 11:00 MCHC 33.5 g/dl (32.0-35.9) 04/27/19 11:00 RDW 13.9 % (11.9-15.9) 04/27/19 11:00 Plt Count 329 K/MM3 (134-434) 04/27/19 11:00 MPV 6.6 fl (7.5-11.1) L 04/27/19 11:00 Sodium 141 mmol/L (136-145) 04/27/19 11:00 Potassium 4.4 mmol/L (3.5-5.1) 04/27/19 11:00 Chloride 107 mmol/L (98-107) 04/27/19 11:00 Carbon Dioxide 25 mmol/L (21-32) 04/27/19 11:00 Anion Gap 8 MMOL/L (8-16) 04/27/19 11:00 BUN 21.3 mg/dL (7-18) H 04/27/19 11:00 Creatinine 1.1 mg/dL (0.55-1.3) 04/27/19 11:00 Est GFR (CKD-EPI)AfAm 90.24 04/27/19 11:00 Est GFR (CKD-EPI)NonAf 77.86 04/27/19 11:00 Random Glucose 97 mg/dL (74-106) 04/27/19 11:00 Calcium 9.3 mg/dL (8.5-10.1) 04/27/19 11:00 Total Bilirubin 0.6 mg/dL (0.2-1) 04/27/19 11:00 AST 48 U/L (15-37) H 04/27/19 11:00 ALT 60 U/L (13-61) 04/27/19 11:00 Alkaline Phosphatase 80 U/L (45-117) 04/27/19 11:00 Total Protein 7.8 g/dl (6.4-8.2) 04/27/19 11:00 Albumin 4.0 g/dl (3.4-5.0) 04/27/19 11:00 Urine Color Yellow 04/29/19 08:00 Urine Appearance Clear 04/29/19 08:00 Urine pH 5.5 (5.0-8.0) D 04/29/19 08:00 Ur Specific [place] 1.023 (1.010-1.035) 04/29/19 08:00 Urine Protein Negative (NEGATIVE) 04/29/19 08:00 Urine Glucose (UA) Negative (NEGATIVE) 04/29/19 08:00 Urine Ketones Negative (NEGATIVE) 04/29/19 08:00 Urine Blood Negative (NEGATIVE) 04/29/19 08:00 Urine Nitrite Negative (NEGATIVE) 04/29/19 08:00 Urine Bilirubin Negative (NEGATIVE) 04/29/19 08:00 Urine Urobilinogen 0.2 mg/dL (0.2-1.0) 04/29/19 08:00 Ur Leukocyte Esterase Negative (NEGATIVE) 04/29/19 08:00 RPR Titer Nonreactive (NONREACTIVE) 04/27/19 11:00 HIV 1&2 Antibody Screen Negative 04/27/19 11:00 HIV P24 Antigen Negative 04/27/19 11:00 Assessment: 04/30/19 15:28 aox3 no acute distress no adventitious breath sounds full ROM no gait abnormality, ambulating in the unit Plan: increase po fluids continue detox continue to monitor
[2019-04-30] MEDS: MELATONIN 5 MG TABLETS PO PRN (21:54)
[2019-04-30] MEDS: METHOCARBAMOL 500 MG TABLET PO PRN (21:54)
[2019-04-30] MEDS: THIAMINE HCL 100 MG TABLET (FP) PO SCH (21:56)
[2019-05-01] MEDS: chlordiazePOXIDE HCL 10 MG CAPSULE PO SCH ×2 (05:44→16:23)
[2019-05-01] MEDS: NICOTINE 21 MG/24 HOURS TOPICAL PATCH TD SCH (10:10)
[2019-05-01] MEDS: PRENATAL VITAMINS W/ FOLIC ACID TABLET (FP) PO SCH (10:10)
[2019-05-01] MEDS: PANTOPRAZOLE 40 MG TABLET (FP) PO SCH (10:10)
[2019-05-01] MEDS: METHOCARBAMOL 500 MG TABLET PO PRN ×2 (10:11→16:23)
[2019-05-01] MEDS: hydrOXYzine PAMOATE 25 MG CAPSULE (FP) PO PRN (10:11)
--- NOTE | 2019-05-01 12:31 | PN ---
[facility] CIWA - CIWA Score Nausea/Vomitin-No Nausea/No Vomiting Muscle Tremors: None Anxiety: 2 Agitation: 1-Slight > Activity Paroxysmal Sweats: 3 Orientation: 0-Oriented Tacttile Disturbances: 0-None Auditory Disturbances: 0-None Visual Disturbances: 0-None Headache: 1-Very Mild CIWA-Ar Total Score: 7 S Progress Note (SOAP) Subjective: c/o mild headache, anxiety, and sweats. Objective: 05/01/19 12:28 Vital Signs 05/01/19 05/01/19 07:38 09:40 Temperature 98.1 F 97.7 F Pulse Rate 60 72 Respiratory 18 18 Rate Blood Pressure 115/77 125/76 Lab Results WBC 7.6 K/mm3 (4.0-10.0) 04/27/19 11:00 RBC 4.37 M/mm3 (4.00-5.60) 04/27/19 11:00 Hgb 14.4 GM/dL (11.7-16.9) 04/27/19 11:00 Hct 43.1 % (35.4-49) 04/27/19 11:00 MCV 98.7 fl (80-96) H 04/27/19 11:00 MCHC 33.5 g/dl (32.0-35.9) 04/27/19 11:00 RDW 13.9 % (11.9-15.9) 04/27/19 11:00 Plt Count 329 K/MM3 (134-434) 04/27/19 11:00 Sodium 141 mmol/L (136-145) 04/27/19 11:00 Potassium 4.4 mmol/L (3.5-5.1) 04/27/19 11:00 Chloride 107 mmol/L (98-107) 04/27/19 11:00 Carbon Dioxide 25 mmol/L (21-32) 04/27/19 11:00 Anion Gap 8 MMOL/L (8-16) 04/27/19 11:00 BUN 21.3 mg/dL (7-18) H 04/27/19 11:00 Creatinine 1.1 mg/dL (0.55-1.3) 04/27/19 11:00 Random Glucose 97 mg/dL (74-106) 04/27/19 11:00 Calcium 9.3 mg/dL (8.5-10.1) 04/27/19 11:00 Labs noted. Assessment: 05/01/19 12:28 AOX3, in no respiratory distress. Full ROM, ambulating in the unit. Withdrawal symptoms. For discharge tomorrow. As per counselor's notes, Pt continue to be motivated to further tx at [facility]. 05/01/19 12:30 Plan: continue detox. D/C in AM.
[2019-05-01] MEDS: MELATONIN 5 MG TABLETS PO PRN (22:01)
[2019-05-01] MEDS: THIAMINE HCL 100 MG TABLET (FP) PO SCH (22:01)
[2019-05-02] MEDS ORDERED: chlordiazePOXIDE HCL 10 MG CAPSULE PO ONE (05:00)
[2019-05-02 11:54] VITALS: BP 126/83; PULSE 84; TEMP 96.8
--- NOTE | 2019-05-02 14:57 | DS ---
[facility] Detox Discharge Summary Admission Date: 04/27/19 Discharge Date: 05/02/19 - History Present History: Alcohol Dependence, Cannabis Dependence Additional Comments: Patient completed detox successfully and discharged safely in stable condition. Patient instructed to follow up with PCP within 1-2 weeks post discharge. Pertinent Past History: Cannabis dependence ETOH dependence GERD Nicotine dependence Depression - Physical Exam Results Vital Signs: Vital Signs Temperature 96.8 F L 05/02/19 11:53 Pulse Rate 84 05/02/19 11:53 Respiratory Rate 18 05/02/19 11:53 Blood Pressure 126/83 05/02/19 11:53 O2 Sat by Pulse Oximetry (%) Pertinent Admission Physical Exam Findings: Withdrawal sxs Laboratory Tests 04/27/19 04/27/19 04/27/19 11:00 11:00 11:00 WBC 7.6 RBC 4.37 Hgb 14.4 Hct 43.1 MCV 98.7 H MCH 33.1 MCHC 33.5 RDW 13.9 Plt Count 329 MPV 6.6 L Sodium 141 Potassium 4.4 Chloride 107 Carbon Dioxide 25 Anion Gap 8 BUN 21.3 H Creatinine 1.1 Est GFR (CKD-EPI)AfAm 90.24 Est GFR (CKD-EPI)NonAf 77.86 Random Glucose 97 Calcium 9.3 Total Bilirubin 0.6 AST 48 H ALT 60 Alkaline Phosphatase 80 Total Protein 7.8 Albumin 4.0 Urine Color Urine Appearance Urine pH Ur Specific [place] Urine Protein Urine Glucose (UA) Urine Ketones Urine Blood Urine Nitrite Urine Bilirubin Urine Urobilinogen Ur Leukocyte Esterase RPR Titer HIV 1&2 Antibody Screen Negative HIV P24 Antigen Negative 04/27/19 04/29/19 11:00 08:00 WBC RBC Hgb Hct MCV MCH MCHC RDW Plt Count MPV Sodium Potassium Chloride Carbon Dioxide Anion Gap BUN Creatinine Est GFR (CKD-EPI)AfAm Est GFR (CKD-EPI)NonAf Random Glucose Calcium Total Bilirubin AST ALT Alkaline Phosphatase Total Protein Albumin Urine Color Yellow Urine Appearance Clear Urine pH 5.5 D Ur Specific [place] 1.023 Urine Protein Negative Urine Glucose (UA) Negative Urine Ketones Negative Urine Blood Negative Urine Nitrite Negative Urine Bilirubin Negative Urine Urobilinogen 0.2 Ur Leukocyte Esterase Negative RPR Titer Nonreactive HIV 1&2 Antibody Screen HIV P24 Antigen Labs reviewed: azotemia noted (encouraged PO water hydration) - Treatment Hospital Course: Detox Protocol Followed, Detoxed Safely, Responded well, Discharged Condition Good - Medication Discharge Medications: Ambulatory Orders Esomeprazole Magnesium [Nexium 24Hr] 40 mg PO DAILY 04/27/19 - Diagnosis (1) Azotemia Status: Acute (2) Cocaine dependence Status: Chronic (3) Alcohol dependence with uncomplicated withdrawal Status: Acute (4) Cannabis dependence, uncomplicated Status: Chronic - AMA Did Patient Leave Against Medical Advice: No (Follow up with PCP within 1-2 weeks)
== END 2019-05-02 09:05 | disposition home or self-care (01) | DRG 774 ==
LOC: YASAS 09:28 → Y6N 11:02
PROVIDERS: ADMIT Surgery; ATTEND Surgery
PROC: HZ2ZZZZ Detoxification Services for Substance Abuse Treatment (ICD-10-PCS; principal; 2019-04-27)
DX: F10.230 Alcohol dependence with withdrawal, uncomplicated (principal); F14.20 Cocaine dependence, uncomplicated; F12.20 Cannabis dependence, uncomplicated; F17.210 Nicotine dependence, cigarettes, uncomplicated; R79.89 Other specified abnormal findings of blood chemistry; K21.9 Gastro-esophageal reflux disease without esophagitis; Z87.19 Personal history of other diseases of the digestive system; Z91.011 Allergy to milk products; Z91.5 Personal history of self-harm
CPT/HCPCS: 36415; 80053; 81003; 85027; 86593; 87389

== ENCOUNTER 2020-03-03 12:31 | Inpatient (IN) | payer OTHER ==
--- NOTE | 2020-03-03 12:58 | BHS.RME ---
Substance Use & Tx History - Substance Use History Alcohol Substance amount: 2 liters vodka Frequency of use: Daily Substance route: Oral Date of Last Use: 03/03/20 Marijuana/Hashish Substance amount: 3 blunts Frequency of use: Daily Substance route: Smoking Date of Last Use: 03/02/20 Nicotine Substance amount: 1 pack Frequency of use: Daily Substance route: Smoking Date of Last Use: 03/03/20 Physical/Psych/Mental Status - Behavior General Behavior: Increased activity (restlessness, agitation) Eye Contact: Normal - Cooperativeness Cooperativeness: Cooperative - Thinking Thought Processes: Tight, Logical, Goal Directed - Physical Health Problems Is patient presently having any pain?: No Does patient presently have any injuries (include location): No Does patient currently have a fever: No Is patient : No CIWA Nausea/Vomitin Muscle Tremors: 4-Moderate,w/Arms Extend Anxiety: 3 Agitation: 3 Paroxysmal Sweats: 4-Forehead w/Sweat Beads Orientation: 0-Oriented Tacttile Disturbances: 0-None Auditory Disturbances: 0-None Visual Disturbances: 0-None Headache: 2-Mild CIWA-Ar Total Score: 19
[2020-03-03 14:17] VITALS: BMI 26.0
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
[2020-03-03] MEDS ORDERED: chlordiazePOXIDE HCL 25 MG CAPSULE PO PRN (15:26)
[2020-03-03] MEDS ORDERED: BISMUTH SUBSALICYLATE 262 MG/15 ML BTL PO PRN (15:26)
[2020-03-03] MEDS ORDERED: MENTHOL/PHENOL 1 EACH UD MM PRN (15:26)
[2020-03-03] MEDS ORDERED: MAGNESIUM HYDROX 2400MG/30ML ORAL SUSPENSION 30 ML CUP PO PRN (15:26)
[2020-03-03] MEDS ORDERED: MAG HYDROX/AL HYDROX/SIMETH 30 ML UNIT-DOSE CUP PO PRN (15:26)
[2020-03-03] MEDS ORDERED: METHOCARBAMOL 500 MG TABLET PO PRN (15:26)
[2020-03-03] MEDS ORDERED: ACETAMINOPHEN 325 MG TABLET (FP) PO PRN ×2 (15:26)
[2020-03-03] MEDS ORDERED: MAGNESIUM CITRATE 300 ML BOTTLE PO PRN (15:26)
[2020-03-03] MEDS ORDERED: NICOTINE POLACRILEX 2 MG GUM BUC PRN (15:26)
[2020-03-03] MEDS ORDERED: IBUPROFEN 400 MG TABLET (FP) PO PRN (15:26)
[2020-03-03] MEDS ORDERED: amLODIPine BESYLATE 5 MG TABLET (FP) PO ONE (15:40)
[2020-03-03] MEDS ORDERED: amLODIPine BESYLATE 5 MG TABLET (FP) ONE (15:45)
--- NOTE | 2020-03-03 15:54 | PN ---
Teaching Attending Note Name of Resident: Nicki Fischer ATTENDING PHYSICIAN STATEMENT I saw and evaluated the patient. I reviewed the resident's note and discussed the case with the resident. I agree with the resident's findings and plan as documented. SUBJECTIVE: OBJECTIVE: ASSESSMENT AND PLAN: Mr. Lehman is a 50 yo man who presents to [facility] requesting detox from alcohol. He has a hx of traumatic intracranial hemorrhage. Plan 1. Librium taper
[2020-03-03] MEDS: ONDANSETRON *ODT* 4 MG TABLET SL SCH ×2 (16:56→22:38)
[2020-03-03] MEDS: chlordiazePOXIDE HCL 25 MG CAPSULE PO SCH ×2 (17:01→22:23)
[2020-03-03] MEDS: hydrOXYzine PAMOATE 25 MG CAPSULE (FP) PO SCH ×2 (17:01→22:23)
[2020-03-03] MEDS: THIAMINE HCL 100 MG TABLET (FP) PO SCH (22:23)
[2020-03-03] MEDS: MELATONIN 5 MG TABLETS PO SCH (22:23)
[2020-03-04] MEDS: hydrOXYzine PAMOATE 25 MG CAPSULE (FP) PO SCH ×5 (05:31→22:05)
[2020-03-04] MEDS: chlordiazePOXIDE HCL 25 MG CAPSULE PO SCH ×4 (05:31→22:05)
[2020-03-04] MEDS: ONDANSETRON *ODT* 4 MG TABLET SL SCH ×3 (08:17→22:34)
[2020-03-04] MEDS: PRENATAL VITAMINS W/ FOLIC ACID TABLET (FP) PO SCH (10:26)
[2020-03-04] MEDS: NICOTINE 21 MG/24 HOURS TOPICAL PATCH TD SCH (10:26)
[2020-03-04 10:57] LABS: HEMATOCRIT 38.3 % (35.4-49); HEMOGLOBIN 12.7 GM/dL (11.7-16.9); MCH 33.1 pg (25.7-33.7); MCHC 33.3 g/dl (32.0-35.9); MEAN CELL VOLUME 99.5 fl (80-96); MEAN PLT VOLUME 6.4 fl (7.5-11.1); PLATELET COUNT 217 K/MM3 (134-434); RBC 3.85 M/mm3 (4.00-5.60); RDW 13.6 % (11.9-15.9); WHITE BLOOD COUNT 4.2 K/mm3 (4.0-10.0)
--- NOTE | 2020-03-04 11:06 | PN ---
[facility] CIWA - CIWA Score Nausea/Vomitin-No Nausea/No Vomiting Muscle Tremors: 2 Anxiety: 3 Agitation: 1-Slight > Activity Paroxysmal Sweats: 3 Orientation: 0-Oriented Tacttile Disturbances: 0-None Auditory Disturbances: 0-None Visual Disturbances: 0-None Headache: 2-Mild CIWA-Ar Total Score: 11 S Progress Note (SOAP) Subjective: c/o shakes, sweats, anxiety, irritability, and headache. Objective: 03/04/20 11:04 Vital Signs 03/04/20 03/04/20 06:40 08:40 Temperature 98 F 97.1 F L Pulse Rate 56 L 61 Respiratory 18 18 Rate Blood Pressure 105/71 122/83 O2 Sat by Pulse 98 Oximetry (%) Laboratory Last Values WBC 4.2 K/mm3 (4.0-10.0) 03/04/20 07:30 RBC 3.85 M/mm3 (4.00-5.60) L 03/04/20 07:30 Hgb 12.7 GM/dL (11.7-16.9) 03/04/20 07:30 Hct 38.3 % (35.4-49) 03/04/20 07:30 MCV 99.5 fl (80-96) H 03/04/20 07:30 MCH 33.1 pg (25.7-33.7) 03/04/20 07:30 MCHC 33.3 g/dl (32.0-35.9) 03/04/20 07:30 RDW 13.6 % (11.9-15.9) 03/04/20 07:30 Plt Count 217 K/MM3 (134-434) 03/04/20 07:30 MPV 6.4 fl (7.5-11.1) L 03/04/20 07:30 The rest of lab results still pending. Assessment: 03/04/20 11:05 AOX3, in no acute respiratory distress. Full ROM, ambulating in the unit. Withdrawal symptoms. Covid-19 test result pending. Plan: continue detox.
--- NOTE | 2020-03-04 12:11 | CONSULT ---
[facility] Psychiatric Consult - Data Date of interview: 03/04/20 Admission source: [facility] Identifying data: Revisit to [facility] and admission to [address] [place] [address] for this 50 y/o [place] male self-referred for detoxification treatment. BRANDI issues : alcohol, cannabis, nicotine. Patient is single, father of two, domiciled, unemployed and supported on welfare. Substance Abuse History: Discussed with the patient. BRANDI profile as follows : Alcohol. Substance amount: 2 liters vodka. Frequency of use: Daily. Substance route: Oral. Date of Last Use: 03/03/20. First use: 12. Marijuana/Hashish. Substance amount: 3 blunts. Frequency of use: Daily. Substance route: Smoking. Date of Last Use: 03/02/20. First use: 9. Nicotine. Substance amount: 1 pack. Frequency of use: Daily. Substance route: Smoking. Date of Last Use: 03/03/20. Smoking history: Current every day smoker. Have you smoked in the past 12 months: Yes. Aproximately how many cigarettes per day: 20. Cigars Per Day: 0. Hx Chewing Tobacco Use: No. Initiated information on smoking cessation: Yes. 'Breaking Loose' booklet given: 03/03/20. - Substances abused. Marijuana/Hashish. Substance route: Smoking. Frequency: Daily. Amount used: 2 blunts. Age of first use: 8. Date of last use: 03/02/20 Medical History: Medical profile is remarkable for GERD + antecedent of surgery (fracture of right orbit floor). No known allergies. Psychiatric History: In this interview, the patient denies history of psychiatric hospitalizations. However, records at [facility] indicate antecedent of 2- 3 psychiatric admissions to [facility] + [facility] (2012). Diagnosed with Bipolar Disorder. Mr Dominik reports current affiliation with the [facility] mental health clinic for OPD care (no show for more than five months as per self-report). Medications (seroquel 200 mg/hs + paxil 20 mg/day + gabapentin 300 mg/tid) not taken for same period of time. Patient denies history of suicide attempts (not a reliable historian in view of a documented history of admissions to [facility] for deliberate overdose with medications). Physical/Sexual Abuse/Trauma History: Patient denies. Additional Comment: Urine drug screen results: THC-Marijuana, BZO- Benzodiazepines, BUP-Suboxone. Noted. Mental Status Exam - Mental Status Exam Alert and Oriented to: Time, Place, Person Cognitive Function: Good Patient Appearance: Well Groomed Mood: Nervous, Withdrawn Affect: Mood Congruent, Constricted Patient Behavior: Fatigued, Appropriate, Cooperative Speech Pattern: Clear, Appropriate Voice Loudness: Normal Thought Process: Intact, Goal Oriented Thought Disorder: Not Present Hallucinations: Denies Suicidal Ideation: Denies Homicidal Ideation: Denies Insight/Judgement: Poor Sleep: Poorly, Difficulty falling asleep Appetite: Good Gait/Station: Normal Psychiatric Findings - Problem List ([place] 1, 2,3) (1) Alcohol dependence with uncomplicated withdrawal Current Visit: Yes Status: Acute (2) Cannabis dependence Current Visit: Yes Status: Chronic (3) Nicotine dependence Current Visit: Yes Status: Chronic Qualifiers: Nicotine product type: cigarettes Substance use status: in withdrawal Qualified Code(s): F17.213 - Nicotine dependence, cigarettes, with withdrawal (4) Substance induced mood disorder Current Visit: Yes Status: Chronic (5) History of depression Current Visit: Yes Status: Chronic (6) Insomnia Current Visit: Yes Status: Chronic (7) Non-compliance Current Visit: Yes Status: Chronic - Initial Treatment Plan Initial Treatment Plan: Psychoeducation. Sleep hygiene. Detoxification. Resumed at the patient's request and, on consent : seroquel 100 mg po hs. Side effects/benefits discussed in this session. Agreement granted to MD. Darby.
[2020-03-04 12:17] LABS: BILIRUBIN,TOTAL 0.5 mg/dL (0.2-1); BLOOD UREA NITROGEN 13.1 mg/dL (7-18); CALCIUM 8.8 mg/dL (8.5-10.1); CREATININE 0.9 mg/dL (0.55-1.3); TOT PROT 6.4 g/dl (6.4-8.2)
[2020-03-04] MEDS: THIAMINE HCL 100 MG TABLET (FP) PO SCH (22:05)
[2020-03-04] MEDS: QUEtiapine FUMARATE 100 MG TABLET (FP) PO SCH (22:05)
[2020-03-04] MEDS: MELATONIN 5 MG TABLETS PO SCH (22:07)
[2020-03-05] MEDS: chlordiazePOXIDE HCL 25 MG CAPSULE PO SCH ×4 (05:13→22:05)
[2020-03-05] MEDS: hydrOXYzine PAMOATE 25 MG CAPSULE (FP) PO SCH ×5 (05:13→22:05)
[2020-03-05] MEDS: ONDANSETRON *ODT* 4 MG TABLET SL SCH ×3 (07:28→23:21)
--- NOTE | 2020-03-05 09:17 | PN ---
S CIWA - CIWA Score Nausea/Vomitin-Mild Nausea/No Vomiting Muscle Tremors: 2 Anxiety: 2 Agitation: 1-Slight > Activity Paroxysmal Sweats: 1-Minimal Palms Moist Orientation: 0-Oriented Tacttile Disturbances: 1-Very Mild Itch/Numbness Auditory Disturbances: 0-None Visual Disturbances: 1-Very Mild Sensitivity Headache: 1-Very Mild CIWA-Ar Total Score: 10 BHS Progress Note (SOAP) Subjective: 50 years old male admitted on 03/03/20 for alcohol withdrawal sx management treating with librium detox regiment alert speech clearly states that less tremor than yesterday slept better at night Objective: 03/05/20 09:17 Vital Signs - 24 hr 03/04/20 03/04/20 03/04/20 12:34 16:35 20:26 Temperature 97.3 F L 97.1 F L Pulse Rate 79 57 L 65 Respiratory 18 17 18 Rate Blood Pressure 139/79 131/96 135/92 O2 Sat by Pulse 96 97 Oximetry (%) 03/05/20 05:07 Temperature 97.3 F L Pulse Rate 62 Respiratory 18 Rate Blood Pressure 109/78 O2 Sat by Pulse 97 Oximetry (%) Laboratory Tests 03/03/20 03/04/20 03/04/20 15:31 07:30 07:30 WBC RBC Hgb Hct MCV MCH MCHC RDW Plt Count MPV Sodium Potassium Chloride Carbon Dioxide Anion Gap BUN Creatinine Est GFR (CKD-EPI)AfAm Est GFR (CKD-EPI)NonAf Random Glucose Calcium Total Bilirubin AST ALT Alkaline Phosphatase Total Protein Albumin Syphilis Serology Non-reactive COVID-19 (MAC) Not detected HIV Ag/Ab Combo Qual Negative 03/04/20 03/04/20 07:30 07:30 WBC 4.2 RBC 3.85 L Hgb 12.7 Hct 38.3 MCV 99.5 H MCH 33.1 MCHC 33.3 RDW 13.6 Plt Count 217 MPV 6.4 L Sodium 140 Potassium 4.0 Chloride 104 Carbon Dioxide 34 H Anion Gap 2 L BUN 13.1 Creatinine 0.9 Est GFR (CKD-EPI)AfAm 114.21 Est GFR (CKD-EPI)NonAf 98.54 Random Glucose 95 Calcium 8.8 Total Bilirubin 0.5 AST 27 ALT 33 Alkaline Phosphatase 90 Total Protein 6.4 Albumin 3.0 L Syphilis Serology COVID-19 (MAC) HIV Ag/Ab Combo Qual lab noted Assessment: 03/05/20 09:17 alcohol withdrawal Plan: librium regiment
[2020-03-05] MEDS: NICOTINE 21 MG/24 HOURS TOPICAL PATCH TD SCH (10:12)
[2020-03-05] MEDS: PRENATAL VITAMINS W/ FOLIC ACID TABLET (FP) PO SCH (10:13)
[2020-03-05] MEDS: THIAMINE HCL 100 MG TABLET (FP) PO SCH (22:04)
[2020-03-05] MEDS: QUEtiapine FUMARATE 100 MG TABLET (FP) PO SCH (22:04)
[2020-03-05] MEDS: MELATONIN 5 MG TABLETS PO SCH (22:05)
[2020-03-06] MEDS ORDERED: chlordiazePOXIDE HCL 10 MG CAPSULE PO PRN
[2020-03-06] MEDS: hydrOXYzine PAMOATE 25 MG CAPSULE (FP) PO SCH (05:46)
[2020-03-06] MEDS: chlordiazePOXIDE HCL 10 MG CAPSULE PO SCH ×4 (05:46→22:07)
[2020-03-06] MEDS: ONDANSETRON *ODT* 4 MG TABLET SL SCH ×3 (06:32→22:49)
--- NOTE | 2020-03-06 09:58 | PN ---
S CIWA - CIWA Score Nausea/Vomitin-No Nausea/No Vomiting Muscle Tremors: 3 Anxiety: 2 Agitation: 1-Slight > Activity Paroxysmal Sweats: No Perspiration Orientation: 0-Oriented Tacttile Disturbances: 0-None Auditory Disturbances: 0-None Visual Disturbances: 2-Mild Sensitivity Headache: 0-None Present CIWA-Ar Total Score: 8 BHS Progress Note (SOAP) Subjective: 50 years old male admitted on 03/03/20 for alcohol withdrawal sx management trating with librium detox regiment ate breakfast showered reports feeling anxious increase vistaril to 50mg po Objective: 03/06/20 10:00 Vital Signs - 24 hr 03/05/20 03/05/20 03/05/20 13:11 16:27 20:26 Temperature 97.5 F L 97.1 F L 97.5 F L Pulse Rate 71 75 65 Respiratory 18 18 18 Rate Blood Pressure 128/80 124/86 137/96 O2 Sat by Pulse 98 97 Oximetry (%) 03/06/20 03/06/20 06:00 08:32 Temperature 97.1 F L 97.1 F L Pulse Rate 61 87 Respiratory 20 18 Rate Blood Pressure 122/80 120/81 O2 Sat by Pulse 95 Oximetry (%) Laboratory Tests 03/03/20 03/04/20 03/04/20 15:31 07:30 07:30 WBC RBC Hgb Hct MCV MCH MCHC RDW Plt Count MPV Sodium Potassium Chloride Carbon Dioxide Anion Gap BUN Creatinine Est GFR (CKD-EPI)AfAm Est GFR (CKD-EPI)NonAf Random Glucose Calcium Total Bilirubin AST ALT Alkaline Phosphatase Total Protein Albumin Syphilis Serology Non-reactive COVID-19 (MAC) Not detected HIV Ag/Ab Combo Qual Negative 03/04/20 03/04/20 07:30 07:30 WBC 4.2 RBC 3.85 L Hgb 12.7 Hct 38.3 MCV 99.5 H MCH 33.1 MCHC 33.3 RDW 13.6 Plt Count 217 MPV 6.4 L Sodium 140 Potassium 4.0 Chloride 104 Carbon Dioxide 34 H Anion Gap 2 L BUN 13.1 Creatinine 0.9 Est GFR (CKD-EPI)AfAm 114.21 Est GFR (CKD-EPI)NonAf 98.54 Random Glucose 95 Calcium 8.8 Total Bilirubin 0.5 AST 27 ALT 33 Alkaline Phosphatase 90 Total Protein 6.4 Albumin 3.0 L Syphilis Serology COVID-19 (MAC) HIV Ag/Ab Combo Qual lab noted Assessment: 03/06/20 10:01 alcohol withdrawal Plan: librium regiment
[2020-03-06] MEDS: PRENATAL VITAMINS W/ FOLIC ACID TABLET (FP) PO SCH (10:17)
[2020-03-06] MEDS: NICOTINE 21 MG/24 HOURS TOPICAL PATCH TD SCH (10:18)
[2020-03-06] MEDS: hydrOXYzine PAMOATE 50 MG CAPSULE (FP) PO SCH ×3 (10:21→22:07)
--- NOTE | 2020-03-06 10:29 | EKG ---
Test Reason : Blood Pressure : / mmHG Vent. Rate : 054 BPM Atrial Rate : 054 BPM P-R Int : 130 ms QRS Dur : 090 ms QT Int : 436 ms P-R-T Axes : 000 026 032 degrees QTc Int : 413 ms SINUS BRADYCARDIA MODERATE VOLTAGE CRITERIA FOR LVH, MAY BE NORMAL VARIANT BORDERLINE ECG WHEN COMPARED WITH ECG OF 10-JAN-2018 10:23, NO SIGNIFICANT CHANGE WAS FOUND Confirmed by Kiko Sarabia ([id number]) on 03/06/2020 10:29:02 AM Referred By: Confirmed By:Kiko Sarabia
[2020-03-06] MEDS: MELATONIN 5 MG TABLETS PO SCH (22:06)
[2020-03-06] MEDS: THIAMINE HCL 100 MG TABLET (FP) PO SCH (22:07)
[2020-03-06] MEDS: QUEtiapine FUMARATE 100 MG TABLET (FP) PO SCH (22:07)
[2020-03-07] MEDS: hydrOXYzine PAMOATE 50 MG CAPSULE (FP) PO SCH ×4 (05:05→22:08)
[2020-03-07] MEDS: chlordiazePOXIDE HCL 10 MG CAPSULE PO SCH ×2 (05:05→17:30)
[2020-03-07] MEDS: ONDANSETRON *ODT* 4 MG TABLET SL SCH ×3 (07:18→22:34)
[2020-03-07] MEDS: PRENATAL VITAMINS W/ FOLIC ACID TABLET (FP) PO SCH (10:07)
[2020-03-07] MEDS: NICOTINE 21 MG/24 HOURS TOPICAL PATCH TD SCH (10:08)
--- NOTE | 2020-03-07 11:58 | PN ---
[facility] CIWA - CIWA Score Nausea/Vomitin-Mild Nausea/No Vomiting Muscle Tremors: 2 Anxiety: 2 Agitation: 1-Slight > Activity Paroxysmal Sweats: No Perspiration Orientation: 0-Oriented Tacttile Disturbances: 0-None Auditory Disturbances: 0-None Visual Disturbances: 0-None Headache: 1-Very Mild CIWA-Ar Total Score: 7 S Progress Note (SOAP) Subjective: alert,irritable,anxious,interrupted sleep,aching pain in the body Objective: 03/07/20 11:56 Vital Signs Temperature 97.3 F L 03/07/20 08:50 Pulse Rate 62 03/07/20 08:50 Respiratory Rate 18 03/07/20 08:50 Blood Pressure 110/74 03/07/20 08:50 O2 Sat by Pulse Oximetry (%) 99 03/07/20 06:06 Laboratory Last Values WBC 4.2 K/mm3 (4.0-10.0) 03/04/20 07:30 RBC 3.85 M/mm3 (4.00-5.60) L 03/04/20 07:30 Hgb 12.7 GM/dL (11.7-16.9) 03/04/20 07:30 Hct 38.3 % (35.4-49) 03/04/20 07:30 MCV 99.5 fl (80-96) H 03/04/20 07:30 MCH 33.1 pg (25.7-33.7) 03/04/20 07:30 MCHC 33.3 g/dl (32.0-35.9) 03/04/20 07:30 RDW 13.6 % (11.9-15.9) 03/04/20 07:30 Plt Count 217 K/MM3 (134-434) 03/04/20 07:30 MPV 6.4 fl (7.5-11.1) L 03/04/20 07:30 Sodium 140 mmol/L (136-145) 03/04/20 07:30 Potassium 4.0 mmol/L (3.5-5.1) 03/04/20 07:30 Chloride 104 mmol/L (98-107) 03/04/20 07:30 Carbon Dioxide 34 mmol/L (21-32) H 03/04/20 07:30 Anion Gap 2 MMOL/L (8-16) L 03/04/20 07:30 BUN 13.1 mg/dL (7-18) 03/04/20 07:30 Creatinine 0.9 mg/dL (0.55-1.3) 03/04/20 07:30 Est GFR (CKD-EPI)AfAm 114.21 03/04/20 07:30 Est GFR (CKD-EPI)NonAf 98.54 03/04/20 07:30 Random Glucose 95 mg/dL (74-106) 03/04/20 07:30 Calcium 8.8 mg/dL (8.5-10.1) 03/04/20 07:30 Total Bilirubin 0.5 mg/dL (0.2-1) 03/04/20 07:30 AST 27 U/L (15-37) 03/04/20 07:30 ALT 33 U/L (13-61) 03/04/20 07:30 Alkaline Phosphatase 90 U/L (45-117) 03/04/20 07:30 Total Protein 6.4 g/dl (6.4-8.2) 03/04/20 07:30 Albumin 3.0 g/dl (3.4-5.0) L 03/04/20 07:30 Syphilis Serology Non-reactive (NONREACTIVE) 03/04/20 07:30 COVID-19 (MAC) Not detected (Not Detected) 03/03/20 15:31 HIV Ag/Ab Combo Qual Negative (NEGATIVE) 03/04/20 07:30 Assessment: 03/07/20 12:00 withdrawal symptom Plan: continue detox librium regimen ,discharge in am
[2020-03-07] MEDS: THIAMINE HCL 100 MG TABLET (FP) PO SCH (22:08)
[2020-03-07] MEDS: QUEtiapine FUMARATE 100 MG TABLET (FP) PO SCH (22:08)
[2020-03-07] MEDS: MELATONIN 5 MG TABLETS PO SCH (22:08)
[2020-03-08] MEDS ORDERED: chlordiazePOXIDE HCL 10 MG CAPSULE PO ONE (05:00)
[2020-03-08] MEDS: hydrOXYzine PAMOATE 50 MG CAPSULE (FP) PO SCH (05:52)
[2020-03-08 06:36] VITALS: TEMP 97.1
[2020-03-08] MEDS: ONDANSETRON *ODT* 4 MG TABLET SL SCH (06:38)
[2020-03-08 09:28] VITALS: BP 122/87; PULSE 96
--- NOTE | 2020-03-08 09:38 | PN ---
[facility] CIWA - CIWA Score Nausea/Vomitin-No Nausea/No Vomiting Muscle Tremors: None Anxiety: 1-Mildly Anxious Agitation: 0-Normal Activity Paroxysmal Sweats: No Perspiration Orientation: 0-Oriented Tacttile Disturbances: 0-None Auditory Disturbances: 0-None Visual Disturbances: 0-None Headache: 0-None Present CIWA-Ar Total Score: 1 S Progress Note (SOAP) Subjective: alert,no complaint Objective: 03/08/20 09:36 Vital Signs Temperature 97.1 F L 03/08/20 08:31 Pulse Rate 96 H 03/08/20 08:31 Respiratory Rate 18 03/08/20 08:31 Blood Pressure 122/87 03/08/20 08:31 O2 Sat by Pulse Oximetry (%) 95 03/08/20 06:35 Assessment: 03/08/20 09:36 detox completed,no withdrawal symptom Plan: stable for discharge today,declined rehab,follow up with [facility] out patient program
--- NOTE | 2020-03-08 09:39 | DS ---
[facility] Detox Discharge Summary Admission Date: 03/03/20 Discharge Date: 03/08/20 - History Present History: Alcohol Dependence, Cannabis Dependence, Cocaine Dependence, Sedative Dependence Additional Comments: alert,oriented x 3 ambulation on the unit lung clear bilaterally on auscultation abdomen soft,no distension,no pain extremity no swelling detox completed,no withdrawal symptom stable for discharge today follow up with after care program as arrangement [facility] out patient declined rehab left the unit in good and stable condition total time of discharge 35 minutes Pertinent Past History: history of pancreatitis insomnia depression - Physical Exam Results Vital Signs: Vital Signs Temperature 97.1 F L 03/08/20 08:31 Pulse Rate 96 H 03/08/20 08:31 Respiratory Rate 18 03/08/20 08:31 Blood Pressure 122/87 03/08/20 08:31 O2 Sat by Pulse Oximetry (%) 95 03/08/20 06:35 Pertinent Admission Physical Exam Findings: withdrawal signs and symptom Laboratory Last Values WBC 4.2 K/mm3 (4.0-10.0) 03/04/20 07:30 RBC 3.85 M/mm3 (4.00-5.60) L 03/04/20 07:30 Hgb 12.7 GM/dL (11.7-16.9) 03/04/20 07:30 Hct 38.3 % (35.4-49) 03/04/20 07:30 MCV 99.5 fl (80-96) H 03/04/20 07:30 MCH 33.1 pg (25.7-33.7) 03/04/20 07:30 MCHC 33.3 g/dl (32.0-35.9) 03/04/20 07:30 RDW 13.6 % (11.9-15.9) 03/04/20 07:30 Plt Count 217 K/MM3 (134-434) 03/04/20 07:30 MPV 6.4 fl (7.5-11.1) L 03/04/20 07:30 Sodium 140 mmol/L (136-145) 03/04/20 07:30 Potassium 4.0 mmol/L (3.5-5.1) 03/04/20 07:30 Chloride 104 mmol/L (98-107) 03/04/20 07:30 Carbon Dioxide 34 mmol/L (21-32) H 03/04/20 07:30 Anion Gap 2 MMOL/L (8-16) L 03/04/20 07:30 BUN 13.1 mg/dL (7-18) 03/04/20 07:30 Creatinine 0.9 mg/dL (0.55-1.3) 03/04/20 07:30 Est GFR (CKD-EPI)AfAm 114.21 03/04/20 07:30 Est GFR (CKD-EPI)NonAf 98.54 03/04/20 07:30 Random Glucose 95 mg/dL (74-106) 03/04/20 07:30 Calcium 8.8 mg/dL (8.5-10.1) 03/04/20 07:30 Total Bilirubin 0.5 mg/dL (0.2-1) 03/04/20 07:30 AST 27 U/L (15-37) 03/04/20 07:30 ALT 33 U/L (13-61) 03/04/20 07:30 Alkaline Phosphatase 90 U/L (45-117) 03/04/20 07:30 Total Protein 6.4 g/dl (6.4-8.2) 03/04/20 07:30 Albumin 3.0 g/dl (3.4-5.0) L 03/04/20 07:30 Syphilis Serology Non-reactive (NONREACTIVE) 03/04/20 07:30 COVID-19 (MAC) Not detected (Not Detected) 20 15:31 HIV Ag/Ab Combo Qual Negative (NEGATIVE) 03/04/20 07:30 Vital Signs Temperature 97.1 F L 03/08/20 08:31 Pulse Rate 96 H 03/08/20 08:31 Respiratory Rate 18 03/08/20 08:31 Blood Pressure 122/87 03/08/20 08:31 O2 Sat by Pulse Oximetry (%) 95 03/08/20 06:35 - Treatment Hospital Course: Detox Protocol Followed, Detoxed Safely, Responded well, Discharged Condition Good Patient has Accepted a Rehab Referral to: declined - Medication Discharge Medications: Ambulatory Orders Esomeprazole Magnesium [Nexium 24Hr] 40 mg PO DAILY 03/07/20 - Diagnosis (1) Alcohol dependence with uncomplicated withdrawal Current Visit: Yes Status: Acute (2) Uncomplicated sedative, hypnotic or anxiolytic withdrawal Current Visit: Yes Status: Acute (3) Cannabis dependence Current Visit: Yes Status: Chronic (4) Cocaine dependence Current Visit: Yes Status: Chronic (5) History of depression Current Visit: Yes Status: Chronic (6) Insomnia Current Visit: Yes Status: Chronic (7) Nicotine dependence Current Visit: Yes Status: Chronic Qualifiers: Nicotine product type: cigarettes Substance use status: in withdrawal Qualified Code(s): F17.213 - Nicotine dependence, cigarettes, with withdrawal - AMA Did Patient Leave Against Medical Advice: No
== END 2020-03-08 11:13 | disposition home or self-care (01) | DRG 774 ==
LOC: YASAS 12:31 → Y3N 15:10
PROVIDERS: ADMIT Allergy & Immunology; ATTEND Allergy & Immunology
PROC: HZ2ZZZZ Detoxification Services for Substance Abuse Treatment (ICD-10-PCS; principal; 2020-03-03)
DX: F10.230 Alcohol dependence with withdrawal, uncomplicated (principal); F13.230 Sedative, hypnotic or anxiolytic dependence with withdrawal, uncomplicated; F14.20 Cocaine dependence, uncomplicated; F12.20 Cannabis dependence, uncomplicated; F17.213 Nicotine dependence, cigarettes, with withdrawal; F19.24 Other psychoactive substance dependence with psychoactive substance-induced mood disorder; G47.00 Insomnia, unspecified; Z91.011 Allergy to milk products; Z91.19 Patient's noncompliance with other medical treatment and regimen; Z59.0 Homelessness
CPT/HCPCS: 36415; 80053; 85027; 86780; 87389; 93005; 93010; Q0162; U0003

== ENCOUNTER 2020-04-17 11:34 | Inpatient (IN) | payer OTHER ==
[~2020-04-17 11:34] MED LIST: chlordiazePOXIDE HCL 25 MG CAPSULE PO SCH
--- NOTE | 2020-04-17 11:52 | BHS.RME ---
Substance Use & Tx History - Substance Use History Alcohol Substance amount: 2 liters vodka Frequency of use: Daily Substance route: Oral Date of Last Use: 04/16/20 (midnight, started at age 12) Marijuana/Hashish Substance amount: 3 blunts Frequency of use: Daily Substance route: Smoking Date of Last Use: 04/16/20 Nicotine Substance amount: 1 pack Frequency of use: Daily Substance route: Smoking Date of Last Use: 04/17/20 Physical/Psych/Mental Status - Behavior General Behavior: Increased activity (restlessness, agitation) Eye Contact: Normal - Cooperativeness Cooperativeness: Cooperative - Thinking Thought Processes: Tight, Logical, Goal Directed - Physical Health Problems Is patient presently having any pain?: No Does patient presently have any injuries (include location): No Does patient currently have a fever: No Is patient : No CIWA Nausea/Vomitin Muscle Tremors: 7-Severe,w/o Arm Extended Anxiety: 4-Mod. Anxious/Guarded Agitation: 4-Moderately Restless Paroxysmal Sweats: 4-Forehead w/Sweat Beads Orientation: 1-Uncertain about Date Tacttile Disturbances: 0-None Auditory Disturbances: 0-None Visual Disturbances: 0-None Headache: 3-Moderate CIWA-Ar Total Score: 28
[2020-04-17 12:08] VITALS: BMI 27.1
[2020-04-17] MEDS ORDERED: chlordiazePOXIDE HCL 25 MG CAPSULE ONE (12:12)
--- NOTE | 2020-04-17 12:16 | BHS.RME ---
Substance Use & Tx History - Substance Use History Alcohol Substance amount: 2 liters vodka + beers Frequency of use: Daily Substance route: Oral Date of Last Use: 04/17/20 (midnight started age 12) Marijuana/Hashish Substance amount: 3 blunts Frequency of use: Daily Substance route: Smoking Date of Last Use: 04/16/20 Nicotine Substance amount: 1 pack Frequency of use: Daily Substance route: Smoking Date of Last Use: 04/17/20 - Last Treatment Date of last treatment: 03/03-03/08/20 completed but relapsed after his partner threw him out Treatment type: Substance Use Disorder (BRANDI) Where was last treatment: Detox Physical/Psych/Mental Status - Behavior General Behavior: Increased activity (restlessness, agitation) Eye Contact: Normal - Cooperativeness Cooperativeness: Cooperative - Thinking Thought Processes: Tight, Logical, Goal Directed - Physical Health Problems Is patient presently having any pain?: No Does patient presently have any injuries (include location): No Does patient currently have a fever: No Is patient : No CIWA Nausea/Vomitin Muscle Tremors: 7-Severe,w/o Arm Extended Anxiety: 4-Mod. Anxious/Guarded Agitation: 4-Moderately Restless Paroxysmal Sweats: 4-Forehead w/Sweat Beads Orientation: 1-Uncertain about Date Tacttile Disturbances: 0-None Auditory Disturbances: 0-None Visual Disturbances: 0-None Headache: 3-Moderate CIWA-Ar Total Score: 28
--- NOTE | 2020-04-17 12:19 | HP ---
CIWA Score Nausea/Vomitin Muscle Tremors: 7-Severe,w/o Arm Extended Anxiety: 4-Mod. Anxious/Guarded Agitation: 4-Moderately Restless Paroxysmal Sweats: 4-Forehead w/Sweat Beads Orientation: 1-Uncertain about Date Tacttile Disturbances: 0-None Auditory Disturbances: 0-None Visual Disturbances: 0-None Headache: 3-Moderate CIWA-Ar Total Score: 28 - Admission Criteria OASAS Guidelines: Admission for Medically Managed Detox: Requires at least one of the followin. CIWA greater than 12 2. Seizures within the past 24 hours 3. Delirium tremens within the past 24 hours 4. Hallucinations within the past 24 hours 5. Acute intervention needed for co occurring medical disorder 6. Acute intervention needed for co occurring psychiatric disorder 7. Severe withdrawal that cannot be handled at a lower level of care (continued vomiting, continued diarrhea, abnormal vital signs) requiring intravenous medication and/or fluids 8. Admitting History and Physical - Smoking History Smoking history: Current every day smoker Have you smoked in the past 12 months: Yes Aproximately how many cigarettes per day: 20 - Alcohol/Substance Use Hx Alcohol Use: Yes Admission ROS [facility] Chief Complaint: " I want to stop drinking. I don't want to drink no more and go to a [employer] continuous [employer] program." Allergies/Adverse Reactions: Allergies Allergy/AdvReac Type Severity Reaction Status Date / Time No Known Drug Allergies Allergy Verified 04/17/20 12:04 lactose [Lactose] AdvReac Unknown LACTOSE Verified 04/17/20 12:04 INTOLERANCE History of Present Illness: 50 year old male with history of alcohol dependence with withdrawals. He was [facility] at [facility] from 03/03-03/08/20 completed detox but then when he got back home he was thrown out by his partner and then immediately relapsed.. He has cannabis use disorder and nicotine dependence. 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 He has no legal issues pending. CIWA=28 VALENCIA=0 Urine Tox: THC, LINDSEY, BZO, BUP Denies use of benzo, but doesn't know if he took or if someone gave him something. He thinks that may have happened. Exam Limitations: No Limitations - Ebola screening Have you traveled outside of the country in the last 21 days: No Have you had contact with anyone from an Ebola affected area: No Have you been sick,other than usual withdrawal symptoms: No Do you have a fever: No - Review of Systems Constitutional: Chills, Diaphoresis EENT: reports: No Symptoms Reported Respiratory: reports: No Symptoms reported Cardiac: reports: No Symptoms Reported GI: reports: No Symptoms Reported : reports: No Symptoms Reported Musculoskeletal: reports: No Symptoms Reported Integumentary: reports: No Symptoms Reported Neuro: reports: Numbness, Tremors Endocrine: reports: No Symptoms Reported Hematology: reports: No Symptoms Reported Psychiatric: reports: Judgement Intact, Orientated x3, Agitated, Anxious Other Systems: Reviewed and Negative Patient History - Patient Medical History Hx Anemia: No Hx Asthma: No Hx Chronic Obstructive Pulmonary Disease (COPD): No Hx Cancer: No Hx Cardiac Disorders: No Hx Congestive Heart Failure: No Hx Hypertension: No Hx Hypercholesterolemia: No Hx Pacemaker: No HX Cerebrovascular Accident: No Hx Seizures: No Hx Dementia: No Hx Diabetes: No Hx Gastrointestinal Disorders: Yes (Hx of GERD) Hx Liver Disease: No Hx Genitourinary Disorders: No Hx Sexually Transmitted Disorders: No Hx Renal Disease (ESRD): No Hx Thyroid Disease: No Hx Human Immunodeficiency Virus (HIV): No (negative) Hx Hepatitis C: No Hx Depression: No Hx Suicide Attempt: No Hx Bipolar Disorder: No Hx Schizophrenia: No - Patient Surgical History Past Surgical History: Yes Hx Neurologic Surgery: No Hx Cataract Extraction: No Hx Cardiac Surgery: No Hx Lung Surgery: No Hx Breast Surgery: No Hx Breast Biopsy: No Hx Abdominal Surgery: No Hx Appendectomy: No Hx Cholecystectomy: No Hx Genitourinary Surgery: No Hx Section: No Hx Orthopedic Surgery: No Other Surgical History: fracture floor of orbit right in 2011 [facility] Anesthesia Reaction: No - PPD History Previous Implant?: Yes Documented Results: Negative w/proof Implanted On Prior [facility] Admission?: Yes Date: 03/05/20 Results: 0 mm - Smoking Cessation Smoking history: Current every day smoker Have you smoked in the past 12 months: Yes Aproximately how many cigarettes per day: 20 Cigars Per Day: 0 Hx Chewing Tobacco Use: No Initiated information on smoking cessation: Yes 'Breaking Loose' booklet given: 04/17/20 - Substances abused Alcohol Substance route: Oral Frequency: Daily Amount used: 2 liters vodka/ beers Age of first use: 12 Date of last use: 04/16/20 Marijuana/Hashish Substance route: Smoking Frequency: Daily Amount used: 3 blunts Age of first use: 8 Date of last use: 04/17/20 Admission Physical Exam S - Vital Signs Vital Signs: Vital Signs - 24 hr 04/17/20 12:04 Temperature 97 F L Pulse Rate 82 Respiratory 16 Rate Blood Pressure 154/106 H - Physical General Appearance: Yes: Moderate Distress, Tremorous, Irritable, Sweating, Anxious HEENTM: Yes: EOMI, Hearing grossly Normal, Normal ENT Inspection, Normocephalic, Normal Voice, HANY, Pharynx Normal, Tm's normal Respiratory: Yes: Chest Non-Tender, Lungs Clear, Normal Breath Sounds, No Respiratory Distress, No Accessory Muscle Use Neck: Yes: No masses,lesions,Nodules, Supple, Trachea in good position Breast: Yes: Within Normal Limits Cardiology: Yes: Regular Rhythm, Regular Rate, S1, S2 Abdominal: Yes: Normal Bowel Sounds, Non Tender, Soft, Protuberent Genitourinary: Yes: Within Normal Limits Back: Yes: Normal Inspection Musculoskeletal: Yes: full range of Motion, Gait Steady, Pelvis Stable Extremities: Yes: Normal Capillary Refill, Normal Inspection, Normal Range of Motion, Non-Tender Neurological: Yes: memory care director II-XII NML intact, Fully Oriented, Alert, Motor Strength 5/5, Normal Mood/Affect, Normal Response Integumentary: Yes: Normal Color, Warm Lymphatic: Yes: Within Normal Limits - Diagnostic (1) Alcohol dependence with uncomplicated withdrawal Current Visit: Yes Status: Acute (2) History of pancreatitis Current Visit: Yes Status: Acute (3) Right orbit fracture Current Visit: Yes Status: Acute (4) Anxiety and depression Current Visit: Yes Status: Chronic (5) Insomnia Current Visit: Yes Status: Chronic (6) Nicotine dependence Current Visit: Yes Status: Chronic Qualifiers: Nicotine product type: cigarettes Substance use status: in withdrawal Qualified Code(s): F17.213 - Nicotine dependence, cigarettes, with withdrawal (7) Non-compliance Current Visit: Yes Status: Chronic Cleared for Admission [facility] - Detox or Rehab [facility] Level of Care: Medically Managed Detox Regimen/Protocol: Librium Claeared for Rehab Admission: No Screened but not Admitted - Documentation of Visit Screened but not Admitted: No Breathalyzer - Breathalyzer Breathalyzer: 0 Vital Signs - Vital Signs Vital signs refused: No Temperature: 97.7 F Pulse Rate: 82 Respiratory Rate: 14 Blood Pressure: 154/106 BP Location: Left Arm Blood Pressure position: Sitting - Height Height: 6 ft - Weight Weight: 200 lb Weight measurement method: Standing scale - BMI Body Mass Index (BMI): 27.1 - Bowel Function Bowel Movement: No Urine Drug Screen - Test Device Lot number: [id number] Expiration date: 11/09/21 - Control Is test valid?: Yes - Results Drug screen NEGATIVE: No Urine drug screen results: THC-Marijuana, LINDSEY-Cocaine, BZO-Benzodiazepines, BUP- Suboxone Inpatient Rehab Admission - Rehab Decision to Admit Inpatient rehab admission?: No
[2020-04-17] MEDS ORDERED: ACETAMINOPHEN 325 MG TABLET (FP) PO PRN ×2 (12:27)
[2020-04-17] MEDS ORDERED: ONDANSETRON *ODT* 4 MG TABLET SL PRN (12:27)
[2020-04-17] MEDS ORDERED: IBUPROFEN 400 MG TABLET (FP) PO PRN (12:27)
[2020-04-17] MEDS ORDERED: NICOTINE POLACRILEX 2 MG GUM BUC PRN (12:27)
[2020-04-17] MEDS ORDERED: MAGNESIUM HYDROX 2400MG/30ML ORAL SUSPENSION 30 ML CUP PO PRN (12:27)
[2020-04-17] MEDS ORDERED: chlordiazePOXIDE HCL 25 MG CAPSULE PO PRN (12:27)
[2020-04-17] MEDS ORDERED: MAG HYDROX/AL HYDROX/SIMETH 30 ML UNIT-DOSE CUP PO PRN (12:27)
[2020-04-17] MEDS ORDERED: MENTHOL/PHENOL 1 EACH UD MM PRN (12:27)
[2020-04-17] MEDS ORDERED: BISMUTH SUBSALICYLATE 262 MG/15 ML BTL PO PRN (12:27)
[2020-04-17] MEDS ORDERED: MAGNESIUM CITRATE 300 ML BOTTLE PO PRN (12:27)
[2020-04-17] MEDS ORDERED: METHOCARBAMOL 500 MG TABLET PO PRN (12:27)
[2020-04-17] MEDS ORDERED: chlordiazePOXIDE HCL 25 MG CAPSULE PO ONE (12:29)
--- OUTSIDE RECORDS SUMMARY | 2020-04-17 12:51 | XMS ---
:1970 Author Organization [facility] Support Name Relationship Address Phone UE Unavailable Unavailable Unavailable JASON WILLIS FRIEND [address] [place] [phone] JASON WILLIS Other [address] Un[place] ilable [place] [id number] Re-disclosure Warning The records that you are about to access may contain information from federally- assisted alcohol or drug abuse programs. If such information is present, then the following federally mandated warning applies: This information has been disclosed to you from records protected by federal confidentiality rules (42 CFR part 2). The federal rules prohibit you from making any further disclosure of this information unless further disclosure is expressly permitted by the written consent of the person to whom it pertains or as otherwise permitted by 42 CFR part 2. A general authorization for the release of medical or other information is NOT sufficient for this purpose. The Federal rules restrict any use of the information to criminally investigate or prosecute any alcohol or drug abuse patient.The records that you are about to access may contain highly sensitive health information, the redisclosure of which is protected by Article 27-F of the [facility] Public Health law. If you continue you may haveaccess to information: Regarding HIV / AIDS; Provided by facilities licensed or operated by the [facility] Office of Mental Health; or Provided by the [facility] Office for People With Developmental Disabilities. If such information is present, then the following [facility] mandated warning applies: This information has been disclosed to you from confidential records which are protected by state law. State law prohibits you from making any further disclosure of this information without the specific written consent of the person to whom it pertains, or as otherwise permitted by law. Any unauthorized further disclosure in violation of state law may result in a fine or alf sentence or both. A general authorization for the release of medical or other information is NOT sufficient authorization for further disclosure. Insurance Providers Payer name Policy type Policy ID Covered Covered libertarian's Policy P keyshawn / Coverage libertarian ID relationship to Dorado Inf ormation type dorado JASON [id number] SP [id number] 600 HEALTH NON CAP [place] [id number] SP [id number] [place] [id number] SP [id number] [facility] Results ID Date Data Source [id number] 04/09/2020 12:00:00 AM EDT [facility] Name Value Range Interpretation Code Description Data Daksha rce(s) Supporting Document(s ) 2019[facility] RNA XXX MAC+probe- Imp This lab [facility] and reported by [employer]. ID Date Data Source [id number] 03/03/2020 03:31:00 PM EDT [facility] Name Value Range Interpretation Description Data Sup porting Code Source(s) Document(s ) SARS [facility] coronavirus 2 RNA This lab was ordered by [facility] Melly Menjivar and reported by [facility]. Procedure
[2020-04-17] MEDS: NICOTINE 7 MG/24 HOURS TOPICAL PATCH TD SCH (13:30)
[2020-04-17] MEDS: PRENATAL VITAMINS W/ FOLIC ACID TABLET (FP) PO SCH (13:30)
[2020-04-17] MEDS ORDERED: hydrOXYzine PAMOATE 25 MG CAPSULE (FP) PO SCH (14:00)
[2020-04-17 14:54] LABS: HEMATOCRIT 40.4 % (35.4-49); HEMOGLOBIN 13.9 GM/dL (11.7-16.9); MCH 33.6 pg (25.7-33.7); MCHC 34.3 g/dl (32.0-35.9); MEAN PLT VOLUME 6.6 fl (7.5-11.1); PLATELET COUNT 251 K/MM3 (134-434); RBC 4.12 M/mm3 (4.00-5.60); RDW 13.3 % (11.9-15.9); WHITE BLOOD COUNT 5.7 K/mm3 (4.0-10.0)
[2020-04-17 15:10] LABS: ALBUMIN 3.6 g/dl (3.4-5.0); BLOOD UREA NITROGEN 16.9 mg/dL (7-18); CALCIUM 9.2 mg/dL (8.5-10.1); CREATININE 1.1 mg/dL (0.55-1.3); POTASSIUM 3.9 mmol/L (3.5-5.1); TOT PROT 8.2 g/dl (6.4-8.2)
[2020-04-17 15:20] LABS: BILIRUBIN,TOTAL 0.6 mg/dL (0.2-1)
[2020-04-17] MEDS: chlordiazePOXIDE HCL 25 MG CAPSULE PO SCH ×2 (17:43→22:33)
[2020-04-17] MEDS: THIAMINE HCL 100 MG TABLET (FP) PO SCH (22:34)
[2020-04-17] MEDS: MELATONIN 5 MG TABLETS PO SCH (22:36)
[2020-04-18] MEDS: chlordiazePOXIDE HCL 25 MG CAPSULE PO SCH ×4 (05:04→22:19)
--- NOTE | 2020-04-18 09:02 | PN ---
S CIWA - CIWA Score Nausea/Vomitin-Mild Nausea/No Vomiting Muscle Tremors: 2 Anxiety: 2 Agitation: 2 Paroxysmal Sweats: 1-Minimal Palms Moist Orientation: 0-Oriented Tacttile Disturbances: 1-Very Mild Itch/Numbness Auditory Disturbances: 0-None Visual Disturbances: 0-None Headache: 2-Mild CIWA-Ar Total Score: 11 S Progress Note (SOAP) Subjective: alert,irritable,anxious,interrupted sleep,tremor,aching pain Objective: 04/18/20 15:56 Vital Signs Temperature 97.3 F L 04/18/20 12:15 Pulse Rate 97 H 04/18/20 12:15 Respiratory Rate 18 04/18/20 12:15 Blood Pressure 136/87 04/18/20 12:15 O2 Sat by Pulse Oximetry (%) 98 04/18/20 12:15 Laboratory Last Values WBC 5.7 K/mm3 (4.0-10.0) 04/17/20 12:50 RBC 4.12 M/mm3 (4.00-5.60) 04/17/20 12:50 Hgb 13.9 GM/dL (11.7-16.9) 04/17/20 12:50 Hct 40.4 % (35.4-49) 04/17/20 12:50 MCV 98.0 fl (80-96) H 04/17/20 12:50 MCH 33.6 pg (25.7-33.7) 04/17/20 12:50 MCHC 34.3 g/dl (32.0-35.9) 04/17/20 12:50 RDW 13.3 % (11.9-15.9) 04/17/20 12:50 Plt Count 251 K/MM3 (134-434) 04/17/20 12:50 MPV 6.6 fl (7.5-11.1) L 04/17/20 12:50 Sodium 138 mmol/L (136-145) 04/17/20 12:50 Potassium 3.9 mmol/L (3.5-5.1) 04/17/20 12:50 Chloride 103 mmol/L (98-107) 04/17/20 12:50 Carbon Dioxide 28 mmol/L (21-32) 04/17/20 12:50 Anion Gap 7 MMOL/L (8-16) L 04/17/20 12:50 BUN 16.9 mg/dL (7-18) 04/17/20 12:50 Creatinine 1.1 mg/dL (0.55-1.3) 04/17/20 12:50 Est GFR (CKD-EPI)AfAm 89.61 04/17/20 12:50 Est GFR (CKD-EPI)NonAf 77.32 04/17/20 12:50 Random Glucose 96 mg/dL (74-106) 04/17/20 12:50 Calcium 9.2 mg/dL (8.5-10.1) 04/17/20 12:50 Total Bilirubin 0.6 mg/dL (0.2-1) 04/17/20 12:50 AST 58 U/L (15-37) H 04/17/20 12:50 ALT 61 U/L (13-61) 04/17/20 12:50 Alkaline Phosphatase 108 U/L (45-117) 04/17/20 12:50 Total Protein 8.2 g/dl (6.4-8.2) 04/17/20 12:50 Albumin 3.6 g/dl (3.4-5.0) 04/17/20 12:50 Syphilis Serology Non-reactive (NONREACTIVE) 04/17/20 12:50 Assessment: 04/18/20 15:57 withdrawal symptom Plan: continue detox librium regimen
[2020-04-18] MEDS: NICOTINE 7 MG/24 HOURS TOPICAL PATCH TD SCH (10:20)
[2020-04-18] MEDS: PRENATAL VITAMINS W/ FOLIC ACID TABLET (FP) PO SCH (10:22)
[2020-04-18] MEDS: hydrOXYzine PAMOATE 25 MG CAPSULE (FP) PO PRN ×2 (12:52→22:20)
[2020-04-18] MEDS: THIAMINE HCL 100 MG TABLET (FP) PO SCH (22:19)
[2020-04-18] MEDS: MELATONIN 5 MG TABLETS PO SCH (22:20)
[2020-04-19] MEDS: chlordiazePOXIDE HCL 25 MG CAPSULE PO SCH ×3 (06:04→10:02)
[2020-04-19 09:48] VITALS: TEMP 97.8
--- NOTE | 2020-04-19 09:51 | PN ---
S CIWA - CIWA Score Nausea/Vomitin Muscle Tremors: 2 Anxiety: 2 Agitation: 2 Paroxysmal Sweats: No Perspiration Orientation: 0-Oriented Tacttile Disturbances: 1-Very Mild Itch/Numbness Auditory Disturbances: 0-None Visual Disturbances: 0-None Headache: 1-Very Mild CIWA-Ar Total Score: 10 S Progress Note (SOAP) Subjective: alert,irritable,anxious,interrupted sleep,tremor,aching pain Objective: 04/19/20 12:14 Vital Signs Temperature 97.8 F 04/19/20 08:40 Pulse Rate 81 04/19/20 08:40 Respiratory Rate 18 04/19/20 08:40 Blood Pressure 147/92 04/19/20 08:40 O2 Sat by Pulse Oximetry (%) 99 04/19/20 08:40 Laboratory Last Values WBC 5.7 K/mm3 (4.0-10.0) 04/17/20 12:50 RBC 4.12 M/mm3 (4.00-5.60) 04/17/20 12:50 Hgb 13.9 GM/dL (11.7-16.9) 04/17/20 12:50 Hct 40.4 % (35.4-49) 04/17/20 12:50 MCV 98.0 fl (80-96) H 04/17/20 12:50 MCH 33.6 pg (25.7-33.7) 04/17/20 12:50 MCHC 34.3 g/dl (32.0-35.9) 04/17/20 12:50 RDW 13.3 % (11.9-15.9) 04/17/20 12:50 Plt Count 251 K/MM3 (134-434) 04/17/20 12:50 MPV 6.6 fl (7.5-11.1) L 04/17/20 12:50 Sodium 138 mmol/L (136-145) 04/17/20 12:50 Potassium 3.9 mmol/L (3.5-5.1) 04/17/20 12:50 Chloride 103 mmol/L (98-107) 04/17/20 12:50 Carbon Dioxide 28 mmol/L (21-32) 04/17/20 12:50 Anion Gap 7 MMOL/L (8-16) L 04/17/20 12:50 BUN 16.9 mg/dL (7-18) 04/17/20 12:50 Creatinine 1.1 mg/dL (0.55-1.3) 04/17/20 12:50 Est GFR (CKD-EPI)AfAm 89.61 04/17/20 12:50 Est GFR (CKD-EPI)NonAf 77.32 04/17/20 12:50 Random Glucose 96 mg/dL (74-106) 04/17/20 12:50 Calcium 9.2 mg/dL (8.5-10.1) 04/17/20 12:50 Total Bilirubin 0.6 mg/dL (0.2-1) 04/17/20 12:50 AST 58 U/L (15-37) H 04/17/20 12:50 ALT 61 U/L (13-61) 04/17/20 12:50 Alkaline Phosphatase 108 U/L (45-117) 04/17/20 12:50 Total Protein 8.2 g/dl (6.4-8.2) 04/17/20 12:50 Albumin 3.6 g/dl (3.4-5.0) 04/17/20 12:50 Syphilis Serology Non-reactive (NONREACTIVE) 04/17/20 12:50 COVID-19 (MAC) Not detected (Not Detected) 04/17/20 13:00 Assessment: 04/19/20 12:14 withdrawal symptom Plan: continue detox librium regimen
[2020-04-19] MEDS: PRENATAL VITAMINS W/ FOLIC ACID TABLET (FP) PO SCH (10:02)
[2020-04-19] MEDS: hydrOXYzine PAMOATE 25 MG CAPSULE (FP) PO PRN (10:04)
[2020-04-19] MEDS: NICOTINE 7 MG/24 HOURS TOPICAL PATCH TD SCH (10:30)
--- NOTE | 2020-04-19 13:11 | PN ---
[facility] Progress Note Note: alert,no complaint Vital Signs Temperature 97.8 F 04/19/20 12:21 Pulse Rate 79 04/19/20 12:21 Respiratory Rate 20 04/19/20 12:21 Blood Pressure 147/93 04/19/20 12:21 O2 Sat by Pulse Oximetry (%) 99 04/19/20 12:21 no withdrawal symptom patient felt better would like to go leave has his own safety place to stay will follow up with after care program [facility] for follow up left the unit in stable condition
--- NOTE | 2020-04-19 13:12 | DS ---
[facility] Detox Discharge Summary Admission Date: 04/17/20 Discharge Date: 04/19/20 - History Present History: Alcohol Dependence, Cannabis Dependence Additional Comments: alert,oriented x 3 ambulation on the unit lung clear on auscultation bilaterally abdomen no pain,no tenderness no withdrawal symptom stable for discharge today follow up with after care program as arrangement [facility] has his own safe place to stay Pertinent Past History: history of pancreatitis history for right orbital fracture history of surgery of subdural hematoma right - Physical Exam Results Vital Signs: Vital Signs Temperature 97.8 F 04/19/20 08:40 Pulse Rate 81 04/19/20 08:40 Respiratory Rate 18 04/19/20 08:40 Blood Pressure 147/92 04/19/20 08:40 O2 Sat by Pulse Oximetry (%) 99 04/19/20 08:40 Pertinent Admission Physical Exam Findings: withdrawal signs and symptom Vital Signs Temperature 97.8 F 04/19/20 12:21 Pulse Rate 79 04/19/20 12:21 Respiratory Rate 20 04/19/20 12:21 Blood Pressure 147/93 04/19/20 12:21 O2 Sat by Pulse Oximetry (%) 99 04/19/20 12:21 Laboratory Last Values WBC 5.7 K/mm3 (4.0-10.0) 04/17/20 12:50 RBC 4.12 M/mm3 (4.00-5.60) 04/17/20 12:50 Hgb 13.9 GM/dL (11.7-16.9) 04/17/20 12:50 Hct 40.4 % (35.4-49) 04/17/20 12:50 MCV 98.0 fl (80-96) H 04/17/20 12:50 MCH 33.6 pg (25.7-33.7) 04/17/20 12:50 MCHC 34.3 g/dl (32.0-35.9) 04/17/20 12:50 RDW 13.3 % (11.9-15.9) 04/17/20 12:50 Plt Count 251 K/MM3 (134-434) 04/17/20 12:50 MPV 6.6 fl (7.5-11.1) L 04/17/20 12:50 Sodium 138 mmol/L (136-145) 04/17/20 12:50 Potassium 3.9 mmol/L (3.5-5.1) 04/17/20 12:50 Chloride 103 mmol/L (98-107) 04/17/20 12:50 Carbon Dioxide 28 mmol/L (21-32) 04/17/20 12:50 Anion Gap 7 MMOL/L (8-16) L 04/17/20 12:50 BUN 16.9 mg/dL (7-18) 04/17/20 12:50 Creatinine 1.1 mg/dL (0.55-1.3) 04/17/20 12:50 Est GFR (CKD-EPI)AfAm 89.61 04/17/20 12:50 Est GFR (CKD-EPI)NonAf 77.32 04/17/20 12:50 Random Glucose 96 mg/dL (74-106) 04/17/20 12:50 Calcium 9.2 mg/dL (8.5-10.1) 04/17/20 12:50 Total Bilirubin 0.6 mg/dL (0.2-1) 04/17/20 12:50 AST 58 U/L (15-37) H 04/17/20 12:50 ALT 61 U/L (13-61) 04/17/20 12:50 Alkaline Phosphatase 108 U/L (45-117) 04/17/20 12:50 Total Protein 8.2 g/dl (6.4-8.2) 04/17/20 12:50 Albumin 3.6 g/dl (3.4-5.0) 04/17/20 12:50 Syphilis Serology Non-reactive (NONREACTIVE) 04/17/20 12:50 COVID-19 (MAC) Not detected (Not Detected) 04/17/20 13:00 - Treatment Hospital Course: Detox Protocol Followed, Detoxed Safely, Responded well, Discharged Condition Good Patient has Accepted a Rehab Referral to: declined - Medication Discharge Medications: Ambulatory Orders NK [No Known Home Medication] 04/17/20 - Diagnosis (1) Alcohol dependence with uncomplicated withdrawal Current Visit: Yes Status: Acute (2) History of pancreatitis Current Visit: Yes Status: Acute (3) Right orbit fracture Current Visit: Yes Status: Acute (4) Nicotine dependence Current Visit: Yes Status: Chronic Qualifiers: Nicotine product type: cigarettes Substance use status: in withdrawal Qualified Code(s): F17.213 - Nicotine dependence, cigarettes, with withdrawal (5) Cannabis dependence Current Visit: No Status: Chronic (6) Subdural hematoma Current Visit: Yes Status: Resolved - AMA Did Patient Leave Against Medical Advice: No
[2020-04-19 13:19] VITALS: BP 147/93; PULSE 79
[2020-04-20] MEDS ORDERED: chlordiazePOXIDE HCL 10 MG CAPSULE PO PRN
[2020-04-20] MEDS ORDERED: chlordiazePOXIDE HCL 10 MG CAPSULE PO SCH (05:00)
[2020-04-21] MEDS ORDERED: chlordiazePOXIDE HCL 10 MG CAPSULE PO SCH (05:00)
--- NOTE | 2020-04-21 09:38 | PN ---
[facility] Progress Note Note: Contact for Mr. Lehman was reached at . This contact was a friend of his who has no contact with the patient but sometimes sees him. He was advised to inform Mr. Lehman to call me at this number .
--- NOTE | 2020-04-21 12:34 | PN ---
[facility] Progress Note Note: Claudio Borges returned my call having found Mr. Lehman in the streets of [facility]. This keno writer/runner spoke to the patient and informed him of his exposure to another patient whose results for COVID-19 was positive. He was advised to quarantine in a longterm for COVID positive patients. He can also be retested at a [facility] site and that the longterm would refer him for testing.
[2020-04-22] MEDS ORDERED: chlordiazePOXIDE HCL 10 MG CAPSULE PO ONE (05:00)
== END 2020-04-19 13:00 | disposition home or self-care (01) | DRG 775 ==
LOC: YASAS 11:34 → Y6N 12:37
PROVIDERS: ADMIT Allergy & Immunology; ATTEND Allergy & Immunology
PROC: HZ2ZZZZ Detoxification Services for Substance Abuse Treatment (ICD-10-PCS; principal; 2020-04-17)
DX: F10.230 Alcohol dependence with withdrawal, uncomplicated (principal); F12.20 Cannabis dependence, uncomplicated; F17.210 Nicotine dependence, cigarettes, uncomplicated; G47.00 Insomnia, unspecified; Z87.19 Personal history of other diseases of the digestive system; Z87.81 Personal history of (healed) traumatic fracture; Z56.0 Unemployment, unspecified; Z91.011 Allergy to milk products
CPT/HCPCS: 36415; 80053; 85027; 86780; U0003